=== PATIENT | male | born 1935 | race Asian ===

== ENCOUNTER → 2017-03-04 | Outpatient (CLI) | payer MEDICARE, OTHER ==
[~2017-03-04] VITALS: Ht 152.4 cm; Wt 54.0 kg
[~2017-03-04] MED LIST: ASPI81 PO; ATOR40TA28 PO; CARV12 PO; DIPH25CA85 PO; DUTA.5 PO; FERR-89 PO; FURO20 PO; ISOS30TA6 PO; LISI10TA7 PO; METF500T4 PO; NITR.4 SL; PRAS10TA6 PO; SLOWK8 PO; ZOLP5 PO
[2017-03-04 11:13] VITALS: BP 94/51
== END | disposition home or self-care (01) ==
LOC: SRCNTR 10:49
PROVIDERS: ATTEND Internal Medicine Clinical Cardiac Electrophysiology
DX: Z45.02 Encounter for adjustment and management of automatic implantable cardiac defibrillator (principal); E11.9 Type 2 diabetes mellitus without complications; E78.00 Pure hypercholesterolemia, unspecified; F17.210 Nicotine dependence, cigarettes, uncomplicated; I10 Essential (primary) hypertension; Z79.82 Long term (current) use of aspirin; Z88.0 Allergy status to penicillin
CPT/HCPCS: G0463

== ENCOUNTER → 2017-03-12 | Outpatient (CLI) | payer MEDICARE, OTHER ==
[2017-03-12 11:53] LABS: BASOPHILS % (AUTO) 0.8 % (0.0-2.0); EOSINOPHILS % (AUTO) 5.4 % (1.0-6.0); HEMATOCRIT 35.2 % (41-53); HEMOGLOBIN 12.1 g/dL (13.5-17.5); LYMPHOCYTES # (AUTO) 1.4 K/uL (1.0-4.8); LYMPHOCYTES % (AUTO) 20.9 % (22.0-44.0); MEAN CORPUSCULAR HEMOGLOBIN 34.6 pg (26.0-34.0); MEAN CORPUSCULAR HGB CONC 34.2 G/dL (31.0-37.0); MEAN CORPUSCULAR VOLUME 101 fL (80-100); MONOCYTES # (AUTO) 0.4 K/uL (0.1-1.0); MONOCYTES % (AUTO) 6.2 % (2.0-9.0); NEUTROPHILS # (AUTO) 4.4 K/uL (1.8-7.7); NEUTROPHILS % (AUTO) 66.7 % (40.0-70.0); PLATELET COUNT (AUTO) 144 K/uL (150-450); RED BLOOD CELL COUNT(AUTO) 3.48 MIL/uL (4.50-5.90); RED CELL DISTRIBUTION WIDTH 13.2 % (11.5-14.5); WHITE BLOOD COUNT (AUTO) 6.5 K/uL (4.5-11.0)
[2017-03-12 11:54] LABS: RBC MORPHOLOGY COMMENT ABNORMAL RBC MORPH
[2017-03-12 12:35] LABS: ALBUMIN 3.7 g/dL (3.4-5.0); BILIRUBIN,TOTAL 0.5 mg/dL (0.1-1.0); CALCIUM, TOTAL 9.2 mg/dL (8.8-10.5); CHOL/HDL RATIO 3.4 (4.2-7.3); CREATININE 1.46 mg/dL (0.60-1.30); MAGNESIUM 1.8 mg/dL (1.80-2.40); POTASSIUM 4.9 mmol/L (3.5-5.1); THYROID STIMULATING HORMONE 3.6 uIU/mL (0.36-3.74); TOTAL PROTEIN, SERUM 8.6 g/dL (6.4-8.2)
[2017-03-12 12:54] LABS: HEMOGLOBIN A1C 7.5 % (4.5-6.2)
== END | disposition home or self-care (01) ==
LOC: LABPV 10:09
PROVIDERS: ATTEND Internal Medicine Cardiovascular Disease
DX: I11.0 Hypertensive heart disease with heart failure (principal); I50.9 Heart failure, unspecified; E11.8 Type 2 diabetes mellitus with unspecified complications; E55.9 Vitamin D deficiency, unspecified
CPT/HCPCS: 82306; 83036; 83735; 84439; 84443

== ENCOUNTER → 2017-03-18 | Outpatient (CLI) | payer MEDICARE, OTHER ==
[~2017-03-18] VITALS: Ht 152.4 cm; Wt 53.5 kg
[2017-03-18 10:54] VITALS: BP 134/62
== END | disposition home or self-care (01) ==
LOC: SRCNTR 10:25
PROVIDERS: ATTEND Internal Medicine Clinical Cardiac Electrophysiology
DX: Z45.02 Encounter for adjustment and management of automatic implantable cardiac defibrillator (principal); I11.0 Hypertensive heart disease with heart failure; I50.22 Chronic systolic (congestive) heart failure; E11.9 Type 2 diabetes mellitus without complications; Z79.82 Long term (current) use of aspirin; Z88.0 Allergy status to penicillin; E78.5 Hyperlipidemia, unspecified
CPT/HCPCS: G0463

== ENCOUNTER 2017-03-20 15:17 | Inpatient (IN) | payer MEDICARE, OTHER ==
[~2017-03-20] VITALS: Ht 160 cm; Wt 43.6 kg
[2017-03-20 15:32] LABS: GLUCOSE,POINT OF CARE 168 MG/DL (70-110)
[2017-03-20] MEDS ORDERED: ASPIRIN 325 MG TABLET PO ONE (16:00)
[2017-03-20 16:40] LABS: BASOPHILS % (AUTO) 0.5 % (0.0-2.0); EOSINOPHILS % (AUTO) 2.8 % (1.0-6.0); HEMATOCRIT 34.8 % (41-53); HEMOGLOBIN 11.9 g/dL (13.5-17.5); LYMPHOCYTES # (AUTO) 1.3 K/uL (1.0-4.8); LYMPHOCYTES % (AUTO) 15.8 % (22.0-44.0); MEAN CORPUSCULAR HEMOGLOBIN 34.7 pg (26.0-34.0); MEAN CORPUSCULAR HGB CONC 34.2 G/dL (31.0-37.0); MEAN CORPUSCULAR VOLUME 101 fL (80-100); MONOCYTES # (AUTO) 0.6 K/uL (0.1-1.0); MONOCYTES % (AUTO) 7.3 % (2.0-9.0); NEUTROPHILS # (AUTO) 6.2 K/uL (1.8-7.7); NEUTROPHILS % (AUTO) 73.6 % (40.0-70.0); PLATELET COUNT (AUTO) 140 K/uL (150-450); RED BLOOD CELL COUNT(AUTO) 3.43 MIL/uL (4.50-5.90); RED CELL DISTRIBUTION WIDTH 13.8 % (11.5-14.5); WHITE BLOOD COUNT (AUTO) 8.4 K/uL (4.5-11.0)
[2017-03-20 16:52] LABS: INR 1.1 (0.9-1.1); PROTHROMBIN TIME 11.4 SEC (9.4-11.6)
[2017-03-20 16:52] LABS: APPEARANCE,URINE CLEAR (CLEAR); GLUCOSE, URINE (UA) NEGATIVE (NEGATIVE); KETONES,URINE NEGATIVE (NEGATIVE); LEUKOCYTE ESTERASE ,URINE NEGATIVE (NEGATIVE); OCCULT BLOOD,URINE NEGATIVE (NEGATIVE); PROTEIN,URINE NEGATIVE (NEGATIVE)
[2017-03-20 16:56] LABS: ADD UA MICROSCOPIC NO
[2017-03-20 17:02] LABS: ANION GAP 9 mmol/L (8-16); CALCIUM, TOTAL 9.3 mg/dL (8.8-10.5); CARBON DIOXIDE 27 mmol/L (22-29); CHLORIDE 102 mmol/L (98-107); CREATININE 1.84 mg/dL (0.60-1.30); GLOMERULAR FILTR. RATE CALC 35 mL/min (>60); POTASSIUM 4.5 mmol/L (3.5-5.1); SODIUM SERUM 138 mmol/L (136-145); UREA NITROGEN, BLOOD 21 mg/dL (7-18)
[2017-03-20 17:10] LABS: B-TYPE NATRIURETIC PEPTIDE 373 pg/mL (0-100)
[2017-03-20 17:27] LABS: ALANINE AMINOTRANSFERASE 21 U/L (12-78); ALBUMIN 3.8 g/dL (3.4-5.0); ASPARTATE AMINOTRANSFERASE 16 U/L (15-37); BILIRUBIN,TOTAL 0.5 mg/dL (0.1-1.0); CREATINE KINASE MB 0.8 ng/mL (0-5); CREATINE KINASE, TOTAL 118 U/L (39-308); TOTAL PROTEIN, SERUM 8.1 g/dL (6.4-8.2)
[2017-03-20 18:51] VITALS: BP 153/75
[2017-03-20 19:44] VITALS: BP 139/66
[2017-03-20] MEDS ORDERED: ONDANSETRON HCL 4 MG/2 ML VIAL IVP PRN (20:45)
[2017-03-20] MEDS ORDERED: 0.9% SODIUM CHLORIDE 10 ML SYRINGE IVP PRN (20:45)
[2017-03-20] MEDS ORDERED: NITROGLYCERIN 0.4 MG SUBLINGUAL TABLET #25 SL PRN ×2 (20:45→21:00)
[2017-03-20] MEDS ORDERED: MAGNESIUM HYDROXIDE SUSPENSION 30 ML UDCUP PO PRN (20:45)
[2017-03-20] MEDS ORDERED: ACETAMINOPHEN 325 MG TABLET PO PRN (20:45)
[2017-03-20] MEDS ORDERED: HYDROCODONE/ACETAMINOPHEN 5-325 MG TABLET PO PRN (20:45)
[2017-03-20] MEDS ORDERED: ALBUTEROL SULFATE 2.5 MG/0.5 ML NEB SOLUTION NEB PRN (20:45)
[2017-03-20] MEDS ORDERED: IPRATROPIUM BROMIDE 0.5 MG/2.5 ML NEB SOLUTION NEB PRN (20:45)
[2017-03-20] MEDS ORDERED: CLOPIDOGREL BISULFATE 75 MG TABLET PO SCH (20:45)
[2017-03-20] MEDS ORDERED: ZOLPIDEM TARTRATE 5 MG TABLET PO PRN (21:00)
[2017-03-20 21:03] LABS: RBC MORPHOLOGY COMMENT ABNORMAL RBC MORPH
[2017-03-20] MEDS: ATORVASTATIN CALCIUM 40 MG TABLET PO SCH (21:21)
[2017-03-20] MEDS: CARVEDILOL 12.5 MG TABLET PO SCH (21:21)
[2017-03-20] MEDS: DOCUSATE SODIUM 100 MG CAPSULE PO SCH (21:21)
[2017-03-20] MEDS ORDERED: PNEUMOCOCCAL VACCINE POLYVALENT 0.5 ML VIAL [PPSV23] IM ONE (23:00)
[2017-03-20] MEDS ORDERED: INFLUENZA VIRUS VACCINE QVS 2017-18 (3YR+)/PF 60 MCG/0.5 ML SYRINGE IM ONE (23:00)
[2017-03-21] VITALS (7 sets, daily range): BP systolic 129–149; BP diastolic 61–80
[2017-03-21 05:59] LABS: INR 1.1 (0.9-1.1); PROTHROMBIN TIME 11.7 SEC (9.4-11.6)
[2017-03-21 06:01] LABS: BASOPHILS % (AUTO) 0.8 % (0.0-2.0); EOSINOPHILS % (AUTO) 4.1 % (1.0-6.0); HEMATOCRIT 31.6 % (41-53); HEMOGLOBIN 10.9 g/dL (13.5-17.5); LYMPHOCYTES # (AUTO) 1.4 K/uL (1.0-4.8); LYMPHOCYTES % (AUTO) 21.1 % (22.0-44.0); MEAN CORPUSCULAR HEMOGLOBIN 35.1 pg (26.0-34.0); MEAN CORPUSCULAR HGB CONC 34.6 G/dL (31.0-37.0); MEAN CORPUSCULAR VOLUME 101 fL (80-100); MONOCYTES # (AUTO) 0.5 K/uL (0.1-1.0); MONOCYTES % (AUTO) 8.1 % (2.0-9.0); NEUTROPHILS # (AUTO) 4.2 K/uL (1.8-7.7); NEUTROPHILS % (AUTO) 65.9 % (40.0-70.0); PLATELET COUNT (AUTO) 123 K/uL (150-450); RED BLOOD CELL COUNT(AUTO) 3.12 MIL/uL (4.50-5.90); RED CELL DISTRIBUTION WIDTH 13.4 % (11.5-14.5); WHITE BLOOD COUNT (AUTO) 6.4 K/uL (4.5-11.0)
[2017-03-21 06:16] LABS: CALCIUM, TOTAL 8.9 mg/dL (8.8-10.5); CHOL/HDL RATIO 3.5 (4.2-7.3); CREATININE 1.68 mg/dL (0.60-1.30); MAGNESIUM 2.2 mg/dL (1.80-2.40); PHOSPHORUS 4.2 mg/dL (2.5-4.9); POTASSIUM 3.9 mmol/L (3.5-5.1)
[2017-03-21 07:01] LABS: RBC MORPHOLOGY COMMENT ABNORMAL RBC MORPH
[2017-03-21] MEDS: HEPARIN SODIUM,PORCINE 5,000 UNITS/ML VIAL SQ SCH ×3 (09:00→17:47)
[2017-03-21] MEDS ORDERED: ISOSORBIDE MONONITRATE 30 MG ER TABLET PO SCH (09:00)
[2017-03-21] MEDS: POTASSIUM CHLORIDE 8 MEQ ER TABLET PO SCH (09:01)
[2017-03-21] MEDS: FERROUS SULFATE 325 MG EC TABLET PO SCH (09:01)
[2017-03-21] MEDS: DOCUSATE SODIUM 100 MG CAPSULE PO SCH ×2 (09:01→21:15)
[2017-03-21] MEDS: CARVEDILOL 12.5 MG TABLET PO SCH (09:01)
[2017-03-21] MEDS: ASPIRIN 81 MG CHEWABLE TABLET PO SCH (09:01)
[2017-03-21] MEDS: FUROSEMIDE 20 MG TABLET PO SCH (09:02)
[2017-03-21] MEDS: PANTOPRAZOLE SODIUM 40 MG DR TABLET PO SCH (09:02)
[2017-03-21] MEDS: DUTASTERIDE 0.5 MG CAPSULE PO SCH (09:02)
[2017-03-21] MEDS: PRASUGREL HCL 10 MG TABLET PO SCH (09:02)
[2017-03-21] MEDS: RANOLAZINE 500 MG SR TABLET PO SCH ×2 (11:49→21:15)
[2017-03-21] MEDS: ATORVASTATIN CALCIUM 40 MG TABLET PO SCH (21:15)
[2017-03-21] MEDS: CARVEDILOL 25 MG TABLET PO SCH (21:15)
[2017-03-22] MEDS: HEPARIN SODIUM,PORCINE 5,000 UNITS/ML VIAL SQ SCH ×2 (00:45→08:15)
[2017-03-22 03:27] VITALS: BP 149/79
[2017-03-22 06:05] LABS: BASOPHILS % (AUTO) 0.6 % (0.0-2.0); EOSINOPHILS % (AUTO) 3.8 % (1.0-6.0); HEMATOCRIT 31.8 % (41-53); LYMPHOCYTES # (AUTO) 1.3 K/uL (1.0-4.8); LYMPHOCYTES % (AUTO) 19.8 % (22.0-44.0); MEAN CORPUSCULAR HEMOGLOBIN 34.9 pg (26.0-34.0); MEAN CORPUSCULAR HGB CONC 34.5 G/dL (31.0-37.0); MEAN CORPUSCULAR VOLUME 101 fL (80-100); MONOCYTES # (AUTO) 0.4 K/uL (0.1-1.0); MONOCYTES % (AUTO) 6.9 % (2.0-9.0); NEUTROPHILS # (AUTO) 4.5 K/uL (1.8-7.7); NEUTROPHILS % (AUTO) 68.9 % (40.0-70.0); PLATELET COUNT (AUTO) 117 K/uL (150-450); RED BLOOD CELL COUNT(AUTO) 3.14 MIL/uL (4.50-5.90); RED CELL DISTRIBUTION WIDTH 13.7 % (11.5-14.5); WHITE BLOOD COUNT (AUTO) 6.5 K/uL (4.5-11.0)
[2017-03-22 06:43] LABS: ALBUMIN 3.2 g/dL (3.4-5.0); BILIRUBIN,TOTAL 0.5 mg/dL (0.1-1.0); CALCIUM, TOTAL 8.8 mg/dL (8.8-10.5); CREATININE 1.46 mg/dL (0.60-1.30); MAGNESIUM 2.1 mg/dL (1.80-2.40); TOTAL PROTEIN, SERUM 7.1 g/dL (6.4-8.2)
[2017-03-22 07:14] VITALS: BP 143/68
[2017-03-22] MEDS: DOCUSATE SODIUM 100 MG CAPSULE PO SCH (08:14)
[2017-03-22] MEDS: CARVEDILOL 25 MG TABLET PO SCH (08:14)
[2017-03-22] MEDS: PRASUGREL HCL 10 MG TABLET PO SCH (08:15)
[2017-03-22] MEDS: FERROUS SULFATE 325 MG EC TABLET PO SCH (08:15)
[2017-03-22] MEDS: FUROSEMIDE 20 MG TABLET PO SCH (08:15)
[2017-03-22] MEDS: RANOLAZINE 500 MG SR TABLET PO SCH (08:15)
[2017-03-22] MEDS: DUTASTERIDE 0.5 MG CAPSULE PO SCH (08:15)
[2017-03-22] MEDS: POTASSIUM CHLORIDE 8 MEQ ER TABLET PO SCH (08:15)
[2017-03-22] MEDS: ASPIRIN 81 MG CHEWABLE TABLET PO SCH (08:15)
[2017-03-22] MEDS: PANTOPRAZOLE SODIUM 40 MG DR TABLET PO SCH (08:15)
[2017-03-22] MEDS ORDERED: ISOSORBIDE MONONITRATE 60 MG ER TABLET PO SCH (09:00)
[2017-03-22 09:12] LABS: RBC MORPHOLOGY COMMENT ABNORMAL RBC MORPH
[2017-03-22 11:38] VITALS: BP 103/56
[2017-03-22 12:22] VITALS: BP 100/85
[2017-03-22 22:38] LABS: GLUCOSE,POINT OF CARE 275 MG/DL (70-110)
== END 2017-03-22 14:35 | disposition home health service (06) | DRG 683 ==
LOC: EMS 15:19 → 5N 18:52
PROVIDERS: ADMIT Hospitalist; ATTEND Hospitalist
PROC: 3E0234Z Introduction of Serum, Toxoid and Vaccine into Muscle, Percutaneous Approach (ICD-10-PCS; principal; 2017-03-22)
DX: N17.9 Acute kidney failure, unspecified (principal); I25.110 Atherosclerotic heart disease of native coronary artery with unstable angina pectoris; I47.2 Ventricular tachycardia; E44.0 Moderate protein-calorie malnutrition; E11.22 Type 2 diabetes mellitus with diabetic chronic kidney disease; I50.20 Unspecified systolic (congestive) heart failure; I11.0 Hypertensive heart disease with heart failure; D50.9 Iron deficiency anemia, unspecified; F17.210 Nicotine dependence, cigarettes, uncomplicated; Z68.1 Body mass index [BMI] 19.9 or less, adult; I13.0 Hypertensive heart and chronic kidney disease with heart failure and stage 1 through stage 4 chronic kidney disease, or unspecified chronic kidney disease; D53.9 Nutritional anemia, unspecified; E78.00 Pure hypercholesterolemia, unspecified; E78.5 Hyperlipidemia, unspecified; I44.7 Left bundle-branch block, unspecified; J44.9 Chronic obstructive pulmonary disease, unspecified; N18.9 Chronic kidney disease, unspecified; N40.0 Benign prostatic hyperplasia without lower urinary tract symptoms; T38.3X5A Adverse effect of insulin and oral hypoglycemic [antidiabetic] drugs, initial encounter; Z85.028 Personal history of other malignant neoplasm of stomach; Z23 Encounter for immunization; Z88.0 Allergy status to penicillin; Z95.5 Presence of coronary angioplasty implant and graft; Z95.810 Presence of automatic (implantable) cardiac defibrillator; Z79.82 Long term (current) use of aspirin; Z79.899 Other long term (current) drug therapy; Z79.84 Long term (current) use of oral hypoglycemic drugs; Z79.02 Long term (current) use of antithrombotics/antiplatelets; I25.2 Old myocardial infarction; Y92.89 Other specified places as the place of occurrence of the external cause
CPT/HCPCS: 76770; 82570; 82962; 83735; 84100; 84300; 89050; 90471; 93005; 93306; 99285; J1644

== ENCOUNTER → 2017-04-01 | Outpatient (CLI) | payer MEDICARE, OTHER ==
[~2017-04-01] MED LIST changes: -DIPH25CA85 PO; -FERR-89 PO; -LISI10TA7 PO; -METF500T4 PO; -SLOWK8 PO; -ZOLP5 PO
[2017-04-01 11:29] LABS: CALCIUM, TOTAL 9.1 mg/dL (8.8-10.5); CREATININE 1.39 mg/dL (0.60-1.30); POTASSIUM 4.1 mmol/L (3.5-5.1)
== END | disposition home or self-care (01) ==
LOC: LABPV 09:58
PROVIDERS: ATTEND Internal Medicine Cardiovascular Disease
DX: I11.0 Hypertensive heart disease with heart failure (principal); I50.9 Heart failure, unspecified; E11.8 Type 2 diabetes mellitus with unspecified complications; E55.9 Vitamin D deficiency, unspecified

== ENCOUNTER → 2017-04-25 | Outpatient (CLI) | payer MEDICARE, OTHER ==
[2017-04-25 12:42] LABS: CALCIUM, TOTAL 9.4 mg/dL (8.8-10.5); CREATININE 1.41 mg/dL (0.60-1.30)
== END | disposition home or self-care (01) ==
LOC: LABPV 09:27
PROVIDERS: ATTEND Internal Medicine Cardiovascular Disease
DX: I11.0 Hypertensive heart disease with heart failure (principal); I50.9 Heart failure, unspecified; E11.65 Type 2 diabetes mellitus with hyperglycemia; E55.9 Vitamin D deficiency, unspecified

== ENCOUNTER → 2017-06-13 | Outpatient (CLI) | payer MEDICARE, OTHER ==
[2017-06-13 14:25] LABS: CREATININE 1.63 mg/dL (0.60-1.30)
[2017-06-13 14:38] LABS: POTASSIUM 3.8 mmol/L (3.5-5.1)
== END | disposition home or self-care (01) ==
LOC: LABPV 10:50
PROVIDERS: ATTEND Internal Medicine Cardiovascular Disease
DX: I11.0 Hypertensive heart disease with heart failure (principal); I50.9 Heart failure, unspecified; E11.8 Type 2 diabetes mellitus with unspecified complications

== ENCOUNTER 2017-08-10 15:40 | Inpatient (IN) | payer MEDICARE, OTHER ==
[~2017-08-10] VITALS: Ht 160 cm; Wt 54.4 kg
[2017-08-10] MEDS ORDERED: SITA25 PO (15:50)
[2017-08-10] MEDS ORDERED: OMEP10 PO (15:50)
[2017-08-10] MEDS ORDERED: SITA50 PO (16:05)
[2017-08-10] MEDS ORDERED: ATOR20TA86 PO (16:05)
[2017-08-10] MEDS ORDERED: NITROGLYCERIN 2% (1 GM=INCH) PACKET TP ONE ×2 (16:15→19:15)
[2017-08-10] MEDS ORDERED: ASPIRIN 325 MG TABLET PO ONE (16:15)
[2017-08-10 16:24] LABS: BASOPHILS % (AUTO) 0.8 % (0.0-2.0); EOSINOPHILS % (AUTO) 2.6 % (1.0-6.0); HEMATOCRIT 34.2 % (41-53); HEMOGLOBIN 11.8 g/dL (13.5-17.5); LYMPHOCYTES # (AUTO) 1.3 K/uL (1.0-4.8); LYMPHOCYTES % (AUTO) 18.4 % (22.0-44.0); MEAN CORPUSCULAR HEMOGLOBIN 34.2 pg (26.0-34.0); MEAN CORPUSCULAR HGB CONC 34.4 G/dL (31.0-37.0); MEAN CORPUSCULAR VOLUME 100 fL (80-100); MONOCYTES # (AUTO) 0.4 K/uL (0.1-1.0); MONOCYTES % (AUTO) 5.2 % (2.0-9.0); NEUTROPHILS # (AUTO) 5.1 K/uL (1.8-7.7); PLATELET COUNT (AUTO) 120 K/uL (150-450); RED BLOOD CELL COUNT(AUTO) 3.43 MIL/uL (4.50-5.90); RED CELL DISTRIBUTION WIDTH 13.4 % (11.5-14.5)
[2017-08-10 16:34] LABS: ANION GAP 9 mmol/L (8-16); CALCIUM, TOTAL 8.6 mg/dL (8.8-10.5); CARBON DIOXIDE 27 mmol/L (22-29); CHLORIDE 105 mmol/L (98-107); CREATININE 1.45 mg/dL (0.60-1.30); GLOMERULAR FILTR. RATE CALC 46 mL/min (>60); GLUCOSE,RANDOM 207 mg/dL (70-110); POTASSIUM 3.6 mmol/L (3.5-5.1); SODIUM SERUM 141 mmol/L (136-145); UREA NITROGEN, BLOOD 21 mg/dL (7-18)
[2017-08-10 16:37] LABS: PROTHROMBIN TIME 10.7 SEC (9.4-11.6)
[2017-08-10 16:59] LABS: ALANINE AMINOTRANSFERASE 29 U/L (12-78); ALBUMIN 3.3 g/dL (3.4-5.0); ALKALINE PHOSPHATASE 72 U/L (46-116); ASPARTATE AMINOTRANSFERASE 21 U/L (15-37); BILIRUBIN,TOTAL 0.5 mg/dL (0.1-1.0); CREATINE KINASE, TOTAL 248 U/L (39-308); TOTAL PROTEIN, SERUM 7.3 g/dL (6.4-8.2)
[2017-08-10 17:06] LABS: B-TYPE NATRIURETIC PEPTIDE 166 pg/mL (0-100)
[2017-08-10 17:29] LABS: CREATINE KINASE MB 1.8 ng/mL (0-5)
[2017-08-10] MEDS ORDERED: ACETAMINOPHEN 325 MG TABLET PO PRN ×2 (18:15→19:00)
[2017-08-10] MEDS ORDERED: 0.9% SODIUM CHLORIDE 10 ML SYRINGE IVP PRN ×2 (18:15→19:00)
[2017-08-10] MEDS ORDERED: ONDANSETRON HCL 4 MG/2 ML VIAL IVP PRN ×2 (18:15→19:00)
[2017-08-10] MEDS ORDERED: NITROGLYCERIN 0.4 MG SUBLINGUAL TABLET #25 SL PRN (18:45)
[2017-08-10] MEDS ORDERED: MAGNESIUM HYDROXIDE SUSPENSION 30 ML UDCUP PO PRN (19:00)
[2017-08-10] MEDS ORDERED: DEXTROSE 50%-WATER 25 GM/50 ML SYRINGE IVP PRN (19:00)
[2017-08-10] MEDS ORDERED: MORPHINE SULFATE 2 MG/ML SYRINGE IVP PRN (19:00)
[2017-08-10] MEDS ORDERED: BISACODYL 10 MG RECTAL RECTAL SUPPOSITORY PR PRN (19:00)
[2017-08-10] MEDS: DOCUSATE SODIUM 100 MG CAPSULE PO SCH (20:17)
[2017-08-10] MEDS: CARVEDILOL 12.5 MG TABLET PO SCH (20:17)
[2017-08-10 20:34] VITALS: BP 174/90
[2017-08-10 20:53] VITALS: BP 174/90
[2017-08-10] MEDS: ATORVASTATIN CALCIUM 20 MG TABLET PO SCH (21:29)
[2017-08-10 23:23] VITALS: BP 126/65
[2017-08-11] VITALS (8 sets, daily range): BP systolic 126–163; BP diastolic 62–78
[2017-08-11 06:56] LABS: BASOPHILS % (AUTO) 0.7 % (0.0-2.0); EOSINOPHILS % (AUTO) 3.5 % (1.0-6.0); HEMATOCRIT 33.6 % (41-53); HEMOGLOBIN 11.7 g/dL (13.5-17.5); LYMPHOCYTES # (AUTO) 1.3 K/uL (1.0-4.8); LYMPHOCYTES % (AUTO) 22.1 % (22.0-44.0); MEAN CORPUSCULAR HEMOGLOBIN 34.3 pg (26.0-34.0); MEAN CORPUSCULAR HGB CONC 34.8 G/dL (31.0-37.0); MEAN CORPUSCULAR VOLUME 99 fL (80-100); MONOCYTES # (AUTO) 0.4 K/uL (0.1-1.0); MONOCYTES % (AUTO) 6.4 % (2.0-9.0); NEUTROPHILS # (AUTO) 4.1 K/uL (1.8-7.7); NEUTROPHILS % (AUTO) 67.3 % (40.0-70.0); PLATELET COUNT (AUTO) 120 K/uL (150-450); RED BLOOD CELL COUNT(AUTO) 3.41 MIL/uL (4.50-5.90); RED CELL DISTRIBUTION WIDTH 13.4 % (11.5-14.5)
[2017-08-11 07:15] LABS: ALBUMIN 3.3 g/dL (3.4-5.0); BILIRUBIN,TOTAL 0.5 mg/dL (0.1-1.0); CALCIUM, TOTAL 8.9 mg/dL (8.8-10.5); CHOL/HDL RATIO 3.9 (4.2-7.3); CREATININE 1.38 mg/dL (0.60-1.30); MAGNESIUM 2.2 mg/dL (1.80-2.40); PHOSPHORUS 3.4 mg/dL (2.5-4.9); POTASSIUM 3.3 mmol/L (3.5-5.1)
[2017-08-11] MEDS: ASPIRIN 81 MG CHEWABLE TABLET PO SCH (08:21)
[2017-08-11] MEDS: DOCUSATE SODIUM 100 MG CAPSULE PO SCH ×2 (08:21→20:20)
[2017-08-11] MEDS: PANTOPRAZOLE SODIUM 40 MG DR TABLET PO SCH (08:22)
[2017-08-11] MEDS: ISOSORBIDE MONONITRATE 30 MG ER TABLET PO SCH (08:22)
[2017-08-11] MEDS: CARVEDILOL 12.5 MG TABLET PO SCH ×2 (08:29→20:20)
[2017-08-11] MEDS ORDERED: PRASUGREL HCL 10 MG TABLET PO SCH (09:00)
[2017-08-11] MEDS: TICAGRELOR 90 MG TABLET PO SCH ×2 (09:32→20:20)
[2017-08-11] MEDS ORDERED: POTASSIUM CHLORIDE 20 MEQ ER TABLET PO ONE (09:45)
[2017-08-11] MEDS ORDERED: SESTAMIBI TC99M/UD ISOTOPE 1 EA INJ INJ ONE ×2 (10:30→12:45)
[2017-08-11] MEDS ORDERED: REGADENOSON 0.4 MG/5 ML PF SYRINGE IVP ONE (12:46)
[2017-08-11] MEDS ORDERED: AMINOPHYLLINE 25 MG/ML 10 ML VIAL IVP ONE ×2 (12:50→12:55)
[2017-08-11 14:58] LABS: GLUCOMETER DEV NAME(LOC) 5N 2S; GLUCOSE,POINT OF CARE 120 MG/DL (70-110)
[2017-08-11 14:58] LABS: GLUCOMETER DEV NAME(LOC) 5N 2S; GLUCOSE,POINT OF CARE 87 MG/DL (70-110)
[2017-08-11 14:59] LABS: GLUCOMETER DEV NAME(LOC) 5N 2S; GLUCOSE,POINT OF CARE 119 MG/DL (70-110)
[2017-08-11] MEDS: INSULIN ASPART 100 UNITS/ML SQ PRN (18:43)
[2017-08-11] MEDS: ATORVASTATIN CALCIUM 20 MG TABLET PO SCH (20:20)
[2017-08-12 00:24] VITALS: BP 138/68
[2017-08-12 05:24] VITALS: BP 123/73
[2017-08-12 05:46] LABS: BASOPHILS % (AUTO) 0.7 % (0.0-2.0); EOSINOPHILS % (AUTO) 2.6 % (1.0-6.0); HEMATOCRIT 34.2 % (41-53); HEMOGLOBIN 11.9 g/dL (13.5-17.5); LYMPHOCYTES # (AUTO) 1.4 K/uL (1.0-4.8); LYMPHOCYTES % (AUTO) 20.5 % (22.0-44.0); MEAN CORPUSCULAR HEMOGLOBIN 34.2 pg (26.0-34.0); MEAN CORPUSCULAR HGB CONC 34.8 G/dL (31.0-37.0); MEAN CORPUSCULAR VOLUME 98 fL (80-100); MONOCYTES # (AUTO) 0.4 K/uL (0.1-1.0); MONOCYTES % (AUTO) 6.2 % (2.0-9.0); NEUTROPHILS # (AUTO) 4.8 K/uL (1.8-7.7); PLATELET COUNT (AUTO) 121 K/uL (150-450); RED BLOOD CELL COUNT(AUTO) 3.48 MIL/uL (4.50-5.90); RED CELL DISTRIBUTION WIDTH 13.3 % (11.5-14.5)
[2017-08-12] MEDS: INSULIN ASPART 100 UNITS/ML SQ PRN (05:51)
[2017-08-12 06:13] LABS: ALBUMIN 3.2 g/dL (3.4-5.0); BILIRUBIN,TOTAL 0.5 mg/dL (0.1-1.0); CALCIUM, TOTAL 8.9 mg/dL (8.8-10.5); CREATININE 1.31 mg/dL (0.60-1.30); MAGNESIUM 2.1 mg/dL (1.80-2.40); POTASSIUM 3.7 mmol/L (3.5-5.1); TOTAL PROTEIN, SERUM 6.8 g/dL (6.4-8.2)
[2017-08-12 07:19] VITALS: BP 125/74
[2017-08-12] MEDS: DOCUSATE SODIUM 100 MG CAPSULE PO SCH (08:15)
[2017-08-12] MEDS: TICAGRELOR 90 MG TABLET PO SCH (08:15)
[2017-08-12] MEDS: ASPIRIN 81 MG CHEWABLE TABLET PO SCH (08:15)
[2017-08-12] MEDS: PANTOPRAZOLE SODIUM 40 MG DR TABLET PO SCH (08:16)
[2017-08-12] MEDS: ISOSORBIDE MONONITRATE 30 MG ER TABLET PO SCH (08:16)
[2017-08-12] MEDS: CARVEDILOL 12.5 MG TABLET PO SCH (08:18)
[2017-08-12 11:02] VITALS: BP 119/68
[2017-08-12 15:50] VITALS: BP 144/77
[2017-08-12] MEDS ORDERED: REGADENOSON 0.4 MG/5 ML PF SYRINGE IVP ONE (18:09)
[2017-08-12] MEDS ORDERED: AMINOPHYLLINE 25 MG/ML 10 ML VIAL IVP ONE (18:09)
[2017-08-12] MEDS ORDERED: ATORVASTATIN CALCIUM 20 MG TABLET PO SCH (21:00)
[2017-08-14 15:08] LABS: GLUCOMETER DEV NAME(LOC) 5N 2S; GLUCOSE,POINT OF CARE 146 MG/DL (70-110)
[2017-08-14 15:08] LABS: GLUCOMETER DEV NAME(LOC) 5S 2N; GLUCOSE,POINT OF CARE 163 MG/DL (70-110)
[2017-08-14 15:08] LABS: GLUCOMETER DEV NAME(LOC) 5N 2S; GLUCOSE,POINT OF CARE 123 MG/DL (70-110)
[2017-08-14 15:09] LABS: GLUCOMETER DEV NAME(LOC) 5S 2N; GLUCOSE,POINT OF CARE 103 MG/DL (70-110)
== END 2017-08-12 18:10 | disposition home or self-care (01) | DRG 683 ==
LOC: EMS 15:41 → 5N 18:33
PROVIDERS: ADMIT Internal Medicine; ATTEND Internal Medicine
DX: N17.9 Acute kidney failure, unspecified (principal); I25.110 Atherosclerotic heart disease of native coronary artery with unstable angina pectoris; I49.5 Sick sinus syndrome; I11.0 Hypertensive heart disease with heart failure; I50.22 Chronic systolic (congestive) heart failure; D63.8 Anemia in other chronic diseases classified elsewhere; E11.9 Type 2 diabetes mellitus without complications; J44.9 Chronic obstructive pulmonary disease, unspecified; E78.00 Pure hypercholesterolemia, unspecified; I44.7 Left bundle-branch block, unspecified; M19.90 Unspecified osteoarthritis, unspecified site; E78.5 Hyperlipidemia, unspecified; N40.0 Benign prostatic hyperplasia without lower urinary tract symptoms; Z95.0 Presence of cardiac pacemaker; Z85.028 Personal history of other malignant neoplasm of stomach; Z88.0 Allergy status to penicillin; Z79.82 Long term (current) use of aspirin
CPT/HCPCS: 78452; 82962; 83735; 84100; 93005; 93017; 93306; A9500; J0280; J2785

== ENCOUNTER 2017-09-23 08:54 | Day surgery (SDC) | payer MEDICARE, OTHER ==
[~2017-09-23] VITALS: Ht 160 cm; Wt 55.9 kg
[~2017-09-23 08:54] MED LIST changes: +ATOR20TA86 PO; -ATOR40TA28 PO; -DUTA.5 PO; +FOLI1 PO; +OMEP10 PO; +PIOG15TA6 PO; +RANI150T7 PO; +SACU1TAB PO; +SITA50 PO; +VITAD50000 PO
[2017-09-23] MEDS ORDERED: 0.9% SODIUM CHLORIDE 10 ML SYRINGE IVP PRN (09:15)
[2017-09-23 09:46] LABS: CALCIUM, TOTAL 8.9 mg/dL (8.8-10.5); CREATININE 1.72 mg/dL (0.60-1.30); POTASSIUM 3.6 mmol/L (3.5-5.1)
[2017-09-23] MEDS ORDERED: NITROGLYCERIN 400 MCG/SUBLINGUAL SPRAY 4.9 GM BOTTLE SL ONE ×2 (10:11→10:45)
[2017-09-23] MEDS ORDERED: METOPROLOL TARTRATE 5 MG/5 ML VIAL ONE (10:11)
[2017-09-23] MEDS ORDERED: SODIUM CHLORIDE 0.9% 100 ML ONE (10:23)
[2017-09-23] MEDS ORDERED: IOVERSOL 350 MG/ML 150 ML VIAL ONE (10:23)
[2017-09-23 10:25] VITALS: BP 139/78
[2017-09-23 10:30] VITALS: BP 125/66
[2017-09-23 10:50] VITALS: BP 150/112
== END 2017-09-23 11:30 | disposition home or self-care (01) ==
LOC: SURGERY 08:54 → EDSTATUS 11:00 → SURGERY 11:30
PROVIDERS: ATTEND Internal Medicine Cardiovascular Disease
DX: I25.118 Atherosclerotic heart disease of native coronary artery with other forms of angina pectoris (principal); I42.5 Other restrictive cardiomyopathy; I11.0 Hypertensive heart disease with heart failure; I50.9 Heart failure, unspecified; I44.7 Left bundle-branch block, unspecified; F17.210 Nicotine dependence, cigarettes, uncomplicated; J44.9 Chronic obstructive pulmonary disease, unspecified; E78.00 Pure hypercholesterolemia, unspecified; E11.9 Type 2 diabetes mellitus without complications; M17.0 Bilateral primary osteoarthritis of knee; F10.21 Alcohol dependence, in remission; N40.0 Benign prostatic hyperplasia without lower urinary tract symptoms; Z95.0 Presence of cardiac pacemaker; Z95.5 Presence of coronary angioplasty implant and graft; Z79.82 Long term (current) use of aspirin; Z88.0 Allergy status to penicillin; Z79.899 Other long term (current) drug therapy; Z98.890 Other specified postprocedural states
CPT/HCPCS: 36415; 75574; 80048; 93005; J7050; Q9967; J3490

== ENCOUNTER 2018-03-15 20:58 | Inpatient (IN) | payer MEDICARE, OTHER ==
[~2018-03-15] VITALS: Ht 160 cm; Wt 53.5 kg
[2018-03-15] MEDS ORDERED: SPIR25TA6 PO (21:05)
[2018-03-15] MEDS ORDERED: RANO500T3 PO (21:05)
[2018-03-15 21:14] LABS: GLUCOSE,POINT OF CARE 159 MG/DL (70-110)
[2018-03-15] MEDS ORDERED: SODIUM CHLORIDE 0.9% 500 ML IV ONE (21:15)
[2018-03-15 21:48] LABS: BASOPHILS % (AUTO) 0.6 % (0.0-2.0); HEMATOCRIT 28.2 % (41-53); HEMOGLOBIN 9.9 g/dL (13.5-17.5); LYMPHOCYTES # (AUTO) 0.9 K/uL (1.0-4.8); LYMPHOCYTES % (AUTO) 14.2 % (22.0-44.0); MEAN CORPUSCULAR HEMOGLOBIN 36.2 pg (26.0-34.0); MEAN CORPUSCULAR VOLUME 103 fL (80-100); MONOCYTES # (AUTO) 0.5 K/uL (0.1-1.0); MONOCYTES % (AUTO) 7.6 % (2.0-9.0); NEUTROPHILS # (AUTO) 4.8 K/uL (1.8-7.7); NEUTROPHILS % (AUTO) 74.6 % (40.0-70.0); PLATELET COUNT (AUTO) 101 K/uL (150-450); RED BLOOD CELL COUNT(AUTO) 2.73 MIL/uL (4.50-5.90); RED CELL DISTRIBUTION WIDTH 14.3 % (11.5-14.5)
[2018-03-15 22:07] LABS: ALBUMIN 3.1 g/dL (3.4-5.0); CALCIUM, TOTAL 8.4 mg/dL (8.8-10.5); CREATININE 2.52 mg/dL (0.60-1.30); POTASSIUM 5.2 mmol/L (3.5-5.1)
[2018-03-15 22:21] LABS: BILIRUBIN,TOTAL 0.4 mg/dL (0.1-1.0)
[2018-03-15] MEDS ORDERED: SODIUM POLYSTYRENE SULFONATE 15 GM/60 ML SUSPENSION BOTTLE PO ONE (22:45)
[2018-03-15] MEDS ORDERED: ASPIRIN 325 MG TABLET PO ONE (22:45)
[2018-03-15] MEDS ORDERED: 0.9% SODIUM CHLORIDE 10 ML SYRINGE IVP PRN (23:00)
[2018-03-15] MEDS ORDERED: ACETAMINOPHEN 325 MG TABLET PO PRN (23:00)
[2018-03-15] MEDS ORDERED: ONDANSETRON HCL 4 MG/2 ML VIAL IVP PRN (23:00)
[2018-03-15 23:58] VITALS: BP 102/53
[2018-03-16] MEDS ORDERED: 0.9% SODIUM CHLORIDE 10 ML SYRINGE IVP PRN (00:30)
[2018-03-16] MEDS ORDERED: ONDANSETRON HCL 4 MG/2 ML VIAL IVP PRN (00:30)
[2018-03-16] MEDS ORDERED: NITROGLYCERIN 0.4 MG SUBLINGUAL TABLET #25 SL PRN (00:30)
[2018-03-16] MEDS ORDERED: GLUCAGON,HUMAN RECOMBINANT 1 MG VIAL IM PRN (03:45)
[2018-03-16] MEDS ORDERED: INSULIN LISPRO 100 UNITS/ML SQ PRN (03:45)
[2018-03-16] MEDS ORDERED: DEXTROSE 50%-WATER 25 GM/50 ML SYG IVP PRN (05:00)
[2018-03-16 05:09] VITALS: BP 109/53
[2018-03-16 05:58] LABS: BASOPHILS % (AUTO) 0.6 % (0.0-2.0); EOSINOPHILS % (AUTO) 3.7 % (1.0-6.0); HEMATOCRIT 26.5 % (41-53); HEMOGLOBIN 9.5 g/dL (13.5-17.5); LYMPHOCYTES # (AUTO) 0.9 K/uL (1.0-4.8); LYMPHOCYTES % (AUTO) 16.3 % (22.0-44.0); MEAN CORPUSCULAR HEMOGLOBIN 36.5 pg (26.0-34.0); MEAN CORPUSCULAR VOLUME 102 fL (80-100); MONOCYTES # (AUTO) 0.4 K/uL (0.1-1.0); MONOCYTES % (AUTO) 7.5 % (2.0-9.0); NEUTROPHILS % (AUTO) 71.9 % (40.0-70.0); PLATELET COUNT (AUTO) 101 K/uL (150-450); RED BLOOD CELL COUNT(AUTO) 2.61 MIL/uL (4.50-5.90); RED CELL DISTRIBUTION WIDTH 14.2 % (11.5-14.5)
[2018-03-16 06:27] LABS: ALBUMIN 2.9 g/dL (3.4-5.0); BILIRUBIN,TOTAL 0.5 mg/dL (0.1-1.0); CALCIUM, TOTAL 8.1 mg/dL (8.8-10.5); CREATININE 1.96 mg/dL (0.60-1.30); POTASSIUM 4.2 mmol/L (3.5-5.1); TOTAL PROTEIN, SERUM 6.3 g/dL (6.4-8.2)
[2018-03-16 07:17] LABS: APPEARANCE,URINE CLEAR (CLEAR); BILIRUBIN,URINE NEGATIVE (NEGATIVE); GLUCOSE, URINE (UA) NEGATIVE (NEGATIVE); KETONES,URINE NEGATIVE (NEGATIVE); LEUKOCYTE ESTERASE ,URINE NEGATIVE (NEGATIVE); NITRATE,URINE NEGATIVE (NEGATIVE); OCCULT BLOOD,URINE NEGATIVE (NEGATIVE); PROTEIN,URINE NEGATIVE (NEGATIVE); UROBILINOGEN,URINE 0.2 mg/dL (<=1.0)
[2018-03-16 07:30] LABS: BACTERIA,URINE None Seen /HPF (None Seen); RBC,URINE None Seen /HPF (0-2); SQUAMOUS EPITHELIAL CELL,UR Few /LPF (None Seen)
[2018-03-16 07:35] VITALS: BP 101/101
[2018-03-16] MEDS ORDERED: CHOLECALCIFEROL (VIT D3) 50,000 UNITS CAPSULE PO SCH (09:00)
[2018-03-16] MEDS ORDERED: SPIRONOLACTONE 25 MG TABLET PO SCH (09:00)
[2018-03-16] MEDS ORDERED: FUROSEMIDE 20 MG TABLET PO SCH (09:00)
[2018-03-16] MEDS: PANTOPRAZOLE SODIUM 40 MG/VIAL IVP SCH (09:17)
[2018-03-16] MEDS: FOLIC ACID 1 MG TABLET PO SCH (09:18)
[2018-03-16] MEDS: ISOSORBIDE MONONITRATE 30 MG ER TABLET PO SCH (09:18)
[2018-03-16] MEDS: ASPIRIN 81 MG CHEWABLE TABLET PO SCH (09:18)
[2018-03-16] MEDS: SACUBITRIL/VALSARTAN 24-26 MG TABLET PO SCH ×2 (09:21→20:15)
[2018-03-16] MEDS: PRASUGREL HCL 10 MG TABLET PO SCH (09:21)
[2018-03-16] MEDS: RANOLAZINE 500 MG SR TABLET PO SCH ×2 (09:21→20:15)
[2018-03-16] MEDS: PIOGLITAZONE HCL 15 MG TABLET PO SCH (09:22)
[2018-03-16] MEDS: SitaGLIPtin PHOSPHATE 50 MG TABLET PO SCH (09:22)
[2018-03-16 11:04] VITALS: BP 123/59
[2018-03-16] MEDS: CARVEDILOL 12.5 MG TABLET PO SCH ×3 (14:43→20:16)
[2018-03-16] MEDS ORDERED: SODIUM CHLORIDE 0.9% 500 ML IV ONE (14:45)
[2018-03-16 19:25] VITALS: BP 117/56
[2018-03-16] MEDS: ATORVASTATIN CALCIUM 20 MG TABLET PO SCH (20:15)
[2018-03-16] MEDS: MEGESTROL ACETATE 400 MG/10 ML SUSPENSION UDCUP PO SCH (20:17)
[2018-03-16 20:20] LABS: GLUCOMETER DEV NAME(LOC) 5S 1M; GLUCOSE,POINT OF CARE 141 MG/DL (70-110)
[2018-03-16 20:20] LABS: GLUCOMETER DEV NAME(LOC) 5S 1M; GLUCOSE,POINT OF CARE 156 MG/DL (70-110)
[2018-03-16 20:24] LABS: GLUCOMETER DEV NAME(LOC) 5S 2Q; GLUCOSE,POINT OF CARE 148 MG/DL (70-110)
[2018-03-16 23:36] VITALS: BP 103/55
[2018-03-17 04:32] VITALS: BP 107/51
[2018-03-17 05:16] LABS: BASOPHILS % (AUTO) 0.7 % (0.0-2.0); EOSINOPHILS % (AUTO) 3.2 % (1.0-6.0); HEMATOCRIT 28.2 % (41-53); LYMPHOCYTES # (AUTO) 0.9 K/uL (1.0-4.8); LYMPHOCYTES % (AUTO) 15.9 % (22.0-44.0); MEAN CORPUSCULAR HEMOGLOBIN 36.8 pg (26.0-34.0); MEAN CORPUSCULAR HGB CONC 35.6 G/dL (31.0-37.0); MEAN CORPUSCULAR VOLUME 104 fL (80-100); MONOCYTES # (AUTO) 0.4 K/uL (0.1-1.0); MONOCYTES % (AUTO) 6.9 % (2.0-9.0); NEUTROPHILS # (AUTO) 4.2 K/uL (1.8-7.7); NEUTROPHILS % (AUTO) 73.3 % (40.0-70.0); PLATELET COUNT (AUTO) 109 K/uL (150-450); RED BLOOD CELL COUNT(AUTO) 2.73 MIL/uL (4.50-5.90); RED CELL DISTRIBUTION WIDTH 14.2 % (11.5-14.5)
[2018-03-17 05:48] LABS: CALCIUM, TOTAL 8.3 mg/dL (8.8-10.5); CREATININE 1.71 mg/dL (0.60-1.30); MAGNESIUM 1.8 mg/dL (1.80-2.40); POTASSIUM 4.4 mmol/L (3.5-5.1)
[2018-03-17 07:56] VITALS: BP 124/58
[2018-03-17] MEDS: PANTOPRAZOLE SODIUM 40 MG/VIAL IVP SCH (08:06)
[2018-03-17] MEDS: PRASUGREL HCL 10 MG TABLET PO SCH (08:07)
[2018-03-17] MEDS: ASPIRIN 81 MG CHEWABLE TABLET PO SCH (08:07)
[2018-03-17] MEDS: FOLIC ACID 1 MG TABLET PO SCH (08:07)
[2018-03-17] MEDS: PIOGLITAZONE HCL 15 MG TABLET PO SCH (08:07)
[2018-03-17] MEDS: CARVEDILOL 12.5 MG TABLET PO SCH (08:07)
[2018-03-17] MEDS: RANOLAZINE 500 MG SR TABLET PO SCH ×2 (08:07→20:22)
[2018-03-17] MEDS: ISOSORBIDE MONONITRATE 30 MG ER TABLET PO SCH (08:07)
[2018-03-17] MEDS: SACUBITRIL/VALSARTAN 24-26 MG TABLET PO SCH ×2 (08:08→20:22)
[2018-03-17] MEDS: MEGESTROL ACETATE 400 MG/10 ML SUSPENSION UDCUP PO SCH ×2 (08:08→20:22)
[2018-03-17] MEDS: SitaGLIPtin PHOSPHATE 50 MG TABLET PO SCH (08:08)
[2018-03-17 11:20] VITALS: BP 96/49
[2018-03-17] MEDS ORDERED: SODIUM CHLORIDE 0.9% 500 ML IV ONE (11:30)
[2018-03-17 11:54] LABS: GLUCOMETER DEV NAME(LOC) 5N 1P; GLUCOSE,POINT OF CARE 154 MG/DL (70-110)
[2018-03-17] MEDS: INSULIN LISPRO 100 UNITS/ML SQ PRN ×2 (12:04→20:26)
[2018-03-17 16:05] VITALS: BP 128/55
[2018-03-17 19:53] VITALS: BP 133/52
[2018-03-17 19:59] LABS: GLUCOMETER DEV NAME(LOC) 5S 2Q; GLUCOSE,POINT OF CARE 154 MG/DL (70-110)
[2018-03-17] MEDS: ATORVASTATIN CALCIUM 20 MG TABLET PO SCH (20:22)
[2018-03-17] MEDS: CARVEDILOL 6.25 MG TABLET PO SCH (20:22)
[2018-03-17 23:56] VITALS: BP 116/58
[2018-03-18 03:58] VITALS: BP 144/54
[2018-03-18 06:00] LABS: GLUCOMETER DEV NAME(LOC) 5N 2S; GLUCOSE,POINT OF CARE 142 MG/DL (70-110)
[2018-03-18 06:00] LABS: GLUCOMETER DEV NAME(LOC) 5S 1M; GLUCOSE,POINT OF CARE 222 MG/DL (70-110)
[2018-03-18] MEDS: INSULIN LISPRO 100 UNITS/ML SQ PRN ×2 (06:46→11:59)
[2018-03-18 07:03] LABS: BASOPHILS % (AUTO) 0.6 % (0.0-2.0); EOSINOPHILS % (AUTO) 3.2 % (1.0-6.0); HEMATOCRIT 31.6 % (41-53); HEMOGLOBIN 11.3 g/dL (13.5-17.5); LYMPHOCYTES % (AUTO) 15.8 % (22.0-44.0); MEAN CORPUSCULAR HEMOGLOBIN 36.5 pg (26.0-34.0); MEAN CORPUSCULAR HGB CONC 35.7 G/dL (31.0-37.0); MEAN CORPUSCULAR VOLUME 102 fL (80-100); MONOCYTES # (AUTO) 0.5 K/uL (0.1-1.0); MONOCYTES % (AUTO) 7.9 % (2.0-9.0); NEUTROPHILS # (AUTO) 4.6 K/uL (1.8-7.7); NEUTROPHILS % (AUTO) 72.5 % (40.0-70.0); PLATELET COUNT (AUTO) 124 K/uL (150-450); RED BLOOD CELL COUNT(AUTO) 3.09 MIL/uL (4.50-5.90); RED CELL DISTRIBUTION WIDTH 14.7 % (11.5-14.5)
[2018-03-18 07:14] LABS: CALCIUM, TOTAL 8.5 mg/dL (8.8-10.5); CREATININE 1.38 mg/dL (0.60-1.30); POTASSIUM 4.3 mmol/L (3.5-5.1)
[2018-03-18 07:30] VITALS: BP 148/86
[2018-03-18] MEDS: RANOLAZINE 500 MG SR TABLET PO SCH (09:07)
[2018-03-18] MEDS: ASPIRIN 81 MG CHEWABLE TABLET PO SCH (09:07)
[2018-03-18] MEDS: SitaGLIPtin PHOSPHATE 50 MG TABLET PO SCH (09:08)
[2018-03-18] MEDS: PRASUGREL HCL 10 MG TABLET PO SCH (09:08)
[2018-03-18] MEDS: ISOSORBIDE MONONITRATE 30 MG ER TABLET PO SCH (09:09)
[2018-03-18] MEDS: FOLIC ACID 1 MG TABLET PO SCH (09:09)
[2018-03-18] MEDS: CARVEDILOL 6.25 MG TABLET PO SCH (09:09)
[2018-03-18] MEDS: PIOGLITAZONE HCL 15 MG TABLET PO SCH (09:09)
[2018-03-18] MEDS: SACUBITRIL/VALSARTAN 24-26 MG TABLET PO SCH (09:10)
[2018-03-18] MEDS: PANTOPRAZOLE SODIUM 40 MG/VIAL IVP SCH (09:12)
[2018-03-18] MEDS: MEGESTROL ACETATE 400 MG/10 ML SUSPENSION UDCUP PO SCH (09:13)
[2018-03-18 11:05] VITALS: BP 111/58
[2018-03-18 15:16] VITALS: BP 104/53
[2018-03-18 16:49] LABS: GLUCOMETER DEV NAME(LOC) 5S 2Q; GLUCOSE,POINT OF CARE 145 MG/DL (70-110)
[2018-03-18 16:49] LABS: GLUCOMETER DEV NAME(LOC) 5N 1P; GLUCOSE,POINT OF CARE 218 MG/DL (70-110)
[2018-03-18 16:50] LABS: GLUCOMETER DEV NAME(LOC) 5S 2Q; GLUCOSE,POINT OF CARE 156 MG/DL (70-110)
== END 2018-03-18 17:05 | disposition home health service (06) | DRG 682 ==
LOC: EMS 20:59 → 5S 22:51
PROVIDERS: ADMIT Internal Medicine; ATTEND Internal Medicine
DX: N17.0 Acute kidney failure with tubular necrosis (principal); E43 Unspecified severe protein-calorie malnutrition; I50.22 Chronic systolic (congestive) heart failure; A08.4 Viral intestinal infection, unspecified; I11.0 Hypertensive heart disease with heart failure; E78.00 Pure hypercholesterolemia, unspecified; E11.43 Type 2 diabetes mellitus with diabetic autonomic (poly)neuropathy; I25.10 Atherosclerotic heart disease of native coronary artery without angina pectoris; I49.9 Cardiac arrhythmia, unspecified; K31.84 Gastroparesis; E86.0 Dehydration; D64.9 Anemia, unspecified; W19.XXXA Unspecified fall, initial encounter; E87.5 Hyperkalemia; Z79.82 Long term (current) use of aspirin; Z79.899 Other long term (current) drug therapy; Z98.61 Coronary angioplasty status; Z88.0 Allergy status to penicillin; Z95.810 Presence of automatic (implantable) cardiac defibrillator; Y93.89 Activity, other specified; Y92.89 Other specified places as the place of occurrence of the external cause; Y99.8 Other external cause status; Z68.20 Body mass index [BMI] 20.0-20.9, adult
CPT/HCPCS: 70450; 83735; 93005; 96361; 96374; 99291; C9113; J7030; J7040

== ENCOUNTER 2018-03-20 13:18 | Inpatient (IN) | payer MEDICARE, OTHER ==
[~2018-03-20] VITALS: Ht 165.1 cm; Wt 55.6 kg
[~2018-03-20 13:18] MED LIST changes: -FOLI1 PO; -FURO20 PO; +RANO500T3 PO
[2018-03-20] MEDS ORDERED: SODIUM CHLORIDE 0.9% 500 ML IV ONE ×2 (13:30→14:30)
[2018-03-20] MEDS ORDERED: SODIUM CHLORIDE 0.9% 1,000 ML IV ONE (14:30)
[2018-03-20 15:20] LABS: BASOPHILS % (AUTO) 0.8 % (0.0-2.0); EOSINOPHILS % (AUTO) 3.5 % (1.0-6.0); HEMATOCRIT 28.2 % (41-53); HEMOGLOBIN 9.8 g/dL (13.5-17.5); LYMPHOCYTES # (AUTO) 0.9 K/uL (1.0-4.8); LYMPHOCYTES % (AUTO) 13.3 % (22.0-44.0); MEAN CORPUSCULAR HEMOGLOBIN 36.5 pg (26.0-34.0); MEAN CORPUSCULAR HGB CONC 34.9 G/dL (31.0-37.0); MEAN CORPUSCULAR VOLUME 104 fL (80-100); MONOCYTES # (AUTO) 0.5 K/uL (0.1-1.0); MONOCYTES % (AUTO) 8.5 % (2.0-9.0); NEUTROPHILS # (AUTO) 4.7 K/uL (1.8-7.7); NEUTROPHILS % (AUTO) 73.9 % (40.0-70.0); PLATELET COUNT (AUTO) 118 K/uL (150-450); RED CELL DISTRIBUTION WIDTH 14.6 % (11.5-14.5)
[2018-03-20 15:33] LABS: CALCIUM, TOTAL 8.1 mg/dL (8.8-10.5); CREATININE 2.18 mg/dL (0.60-1.30); POTASSIUM 4.4 mmol/L (3.5-5.1)
[2018-03-20 15:34] LABS: INR 1.1 (0.9-1.1)
[2018-03-20 15:41] LABS: LACTIC ACID 1.3 mmol/L (0.4-2.0)
[2018-03-20 15:58] LABS: ALBUMIN 2.8 g/dL (3.4-5.0); BILIRUBIN,TOTAL 0.4 mg/dL (0.1-1.0); TOTAL PROTEIN, SERUM 6.4 g/dL (6.4-8.2)
[2018-03-20 17:33] LABS: BILIRUBIN,URINE NEGATIVE (NEGATIVE); GLUCOSE, URINE (UA) NEGATIVE (NEGATIVE); KETONES,URINE NEGATIVE (NEGATIVE); LEUKOCYTE ESTERASE ,URINE NEGATIVE (NEGATIVE); NITRATE,URINE NEGATIVE (NEGATIVE); OCCULT BLOOD,URINE SMALL (NEGATIVE); PROTEIN,URINE NEGATIVE (NEGATIVE); UROBILINOGEN,URINE 0.2 mg/dL (<=1.0)
[2018-03-20 17:34] LABS: APPEARANCE,URINE CLEAR (CLEAR)
[2018-03-20 17:57] LABS: BACTERIA,URINE None Seen /HPF (None Seen); WBC,URINE None Seen /HPF (0-5)
[2018-03-20] MEDS ORDERED: ACETAMINOPHEN 325 MG TABLET PO PRN ×2 (18:30→21:45)
[2018-03-20] MEDS ORDERED: 0.9% SODIUM CHLORIDE 10 ML SYRINGE IVP PRN (18:30)
[2018-03-20 21:00] VITALS: BP 125/62
[2018-03-20] MEDS ORDERED: BISACODYL 10 MG RECTAL RECTAL SUPPOSITORY PR PRN (21:45)
[2018-03-20] MEDS ORDERED: SODIUM CHLORIDE 0.45% 1,000 ML IV ONE (21:45)
[2018-03-20] MEDS ORDERED: ALBUTEROL SULFATE 2.5 MG/0.5 ML NEB SOLUTION NEB PRN (21:45)
[2018-03-20] MEDS ORDERED: DEXTROSE 50%-WATER 25 GM/50 ML SYRINGE IVP PRN (21:45)
[2018-03-20] MEDS ORDERED: OxyCODONE HCL/ACETAMINOPHEN 5-325 MG TABLET PO PRN (21:45)
[2018-03-20 23:48] VITALS: BP 149/65
[2018-03-21 04:27] VITALS: BP 100/48
[2018-03-21 05:14] VITALS: BP 126/56
[2018-03-21 06:55] LABS: BASOPHILS % (AUTO) 0.8 % (0.0-2.0); EOSINOPHILS % (AUTO) 5.8 % (1.0-6.0); HEMATOCRIT 26.6 % (41-53); HEMOGLOBIN 9.5 g/dL (13.5-17.5); LYMPHOCYTES # (AUTO) 0.9 K/uL (1.0-4.8); LYMPHOCYTES % (AUTO) 18.2 % (22.0-44.0); MEAN CORPUSCULAR HEMOGLOBIN 37.4 pg (26.0-34.0); MEAN CORPUSCULAR HGB CONC 35.9 G/dL (31.0-37.0); MEAN CORPUSCULAR VOLUME 104 fL (80-100); MONOCYTES # (AUTO) 0.4 K/uL (0.1-1.0); MONOCYTES % (AUTO) 7.6 % (2.0-9.0); NEUTROPHILS # (AUTO) 3.4 K/uL (1.8-7.7); NEUTROPHILS % (AUTO) 67.6 % (40.0-70.0); PLATELET COUNT (AUTO) 115 K/uL (150-450); RED BLOOD CELL COUNT(AUTO) 2.55 MIL/uL (4.50-5.90); RED CELL DISTRIBUTION WIDTH 14.5 % (11.5-14.5)
[2018-03-21 07:24] VITALS: BP 120/57
[2018-03-21 07:28] LABS: ALBUMIN 2.6 g/dL (3.4-5.0); BILIRUBIN,TOTAL 0.4 mg/dL (0.1-1.0); CALCIUM, TOTAL 8.2 mg/dL (8.8-10.5); CREATININE 1.59 mg/dL (0.60-1.30); POTASSIUM 4.2 mmol/L (3.5-5.1); TOTAL PROTEIN, SERUM 6.1 g/dL (6.4-8.2)
[2018-03-21] MEDS: PANTOPRAZOLE SODIUM 40 MG DR TABLET PO SCH (08:55)
[2018-03-21] MEDS: ASPIRIN 81 MG CHEWABLE TABLET PO SCH (08:55)
[2018-03-21] MEDS: DOCUSATE SODIUM 100 MG CAPSULE PO SCH ×2 (08:55→20:08)
[2018-03-21] MEDS: HEPARIN SODIUM,PORCINE 5,000 UNITS/ML VIAL SQ SCH ×2 (08:56→20:06)
[2018-03-21] MEDS: LOSARTAN POTASSIUM 25 MG TABLET PO SCH ×2 (11:15→20:08)
[2018-03-21] MEDS: CLOPIDOGREL BISULFATE 75 MG TABLET PO SCH (11:15)
[2018-03-21] MEDS: MULTIVITAMINS WITH MINERALS, THERAPEUTIC TABLET PO SCH (11:15)
[2018-03-21] MEDS: CARVEDILOL 3.125 MG TABLET PO SCH ×2 (11:15→20:08)
[2018-03-21 11:38] VITALS: BP 134/67
[2018-03-21 17:09] VITALS: BP 148/74
[2018-03-21] MEDS: INSULIN LISPRO 100 UNITS/ML SQ PRN (17:36)
[2018-03-21 19:34] VITALS: BP 124/55
[2018-03-21 20:35] LABS: GLUCOMETER DEV NAME(LOC) 5S 1M; GLUCOSE,POINT OF CARE 122 MG/DL (70-110)
[2018-03-21] MEDS ORDERED: ATORVASTATIN CALCIUM 20 MG TABLET PO SCH (21:00)
[2018-03-22 00:06] VITALS: BP 109/53
[2018-03-22 05:11] VITALS: BP 110/56
[2018-03-22 06:32] LABS: BASOPHILS % (AUTO) 0.7 % (0.0-2.0); EOSINOPHILS % (AUTO) 4.7 % (1.0-6.0); HEMOGLOBIN 10.9 g/dL (13.5-17.5); LYMPHOCYTES % (AUTO) 14.7 % (22.0-44.0); MEAN CORPUSCULAR HEMOGLOBIN 36.9 pg (26.0-34.0); MEAN CORPUSCULAR HGB CONC 35.3 G/dL (31.0-37.0); MEAN CORPUSCULAR VOLUME 105 fL (80-100); MONOCYTES # (AUTO) 0.5 K/uL (0.1-1.0); MONOCYTES % (AUTO) 7.8 % (2.0-9.0); NEUTROPHILS # (AUTO) 4.9 K/uL (1.8-7.7); NEUTROPHILS % (AUTO) 72.1 % (40.0-70.0); PLATELET COUNT (AUTO) 136 K/uL (150-450); RED BLOOD CELL COUNT(AUTO) 2.97 MIL/uL (4.50-5.90); RED CELL DISTRIBUTION WIDTH 14.2 % (11.5-14.5)
[2018-03-22 07:00] LABS: ALBUMIN 2.8 g/dL (3.4-5.0); BILIRUBIN,TOTAL 0.5 mg/dL (0.1-1.0); CALCIUM, TOTAL 8.7 mg/dL (8.8-10.5); CREATININE 1.53 mg/dL (0.60-1.30); MAGNESIUM 1.6 mg/dL (1.80-2.40); POTASSIUM 4.4 mmol/L (3.5-5.1); TOTAL PROTEIN, SERUM 6.6 g/dL (6.4-8.2)
[2018-03-22 07:35] VITALS: BP 116/58
[2018-03-22] MEDS: PANTOPRAZOLE SODIUM 40 MG DR TABLET PO SCH (08:36)
[2018-03-22] MEDS: CARVEDILOL 3.125 MG TABLET PO SCH (08:36)
[2018-03-22] MEDS: MULTIVITAMINS WITH MINERALS, THERAPEUTIC TABLET PO SCH (08:36)
[2018-03-22] MEDS: DOCUSATE SODIUM 100 MG CAPSULE PO SCH (08:36)
[2018-03-22] MEDS: HEPARIN SODIUM,PORCINE 5,000 UNITS/ML VIAL SQ SCH (08:36)
[2018-03-22] MEDS: LOSARTAN POTASSIUM 25 MG TABLET PO SCH (08:36)
[2018-03-22] MEDS: CLOPIDOGREL BISULFATE 75 MG TABLET PO SCH (08:36)
[2018-03-22] MEDS: ASPIRIN 81 MG CHEWABLE TABLET PO SCH (08:37)
[2018-03-22] MEDS ORDERED: MAGNESIUM OXIDE 400 MG TABLET PO ONE (11:00)
[2018-03-22 11:25] VITALS: BP 111/57
[2018-03-22] MEDS: INSULIN LISPRO 100 UNITS/ML SQ PRN (11:48)
[2018-03-22 13:05] LABS: GLUCOMETER DEV NAME(LOC) 5N 1P; GLUCOSE,POINT OF CARE 150 MG/DL (70-110)
[2018-03-22] MEDS ORDERED: CLOP75 PO (13:20)
[2018-03-22] MEDS ORDERED: LOSA25TA16 PO (13:21)
[2018-03-22] MEDS ORDERED: CARV3 PO (13:24)
[2018-03-23 14:19] LABS: GLUCOMETER DEV NAME(LOC) 5N 2S; GLUCOSE,POINT OF CARE 124 MG/DL (70-110)
[2018-03-23 14:19] LABS: GLUCOMETER DEV NAME(LOC) 5N 2S; GLUCOSE,POINT OF CARE 116 MG/DL (70-110)
[2018-03-23 14:19] LABS: GLUCOMETER DEV NAME(LOC) 5N 2S; GLUCOSE,POINT OF CARE 205 MG/DL (70-110)
[2018-03-23 14:20] LABS: GLUCOMETER DEV NAME(LOC) 5N 2S; GLUCOSE,POINT OF CARE 138 MG/DL (70-110)
== END 2018-03-22 14:35 | disposition home or self-care (01) | DRG 314 ==
LOC: EMS 13:20 → 5S 18:34
PROVIDERS: ADMIT Internal Medicine; ATTEND Internal Medicine
DX: I95.9 Hypotension, unspecified (principal); I50.23 Acute on chronic systolic (congestive) heart failure; I13.0 Hypertensive heart and chronic kidney disease with heart failure and stage 1 through stage 4 chronic kidney disease, or unspecified chronic kidney disease; I50.22 Chronic systolic (congestive) heart failure; N17.9 Acute kidney failure, unspecified; M19.90 Unspecified osteoarthritis, unspecified site; J44.9 Chronic obstructive pulmonary disease, unspecified; R62.7 Adult failure to thrive; E78.00 Pure hypercholesterolemia, unspecified; T50.995A Adverse effect of other drugs, medicaments and biological substances, initial encounter; D63.8 Anemia in other chronic diseases classified elsewhere; E11.22 Type 2 diabetes mellitus with diabetic chronic kidney disease; N18.9 Chronic kidney disease, unspecified; I25.10 Atherosclerotic heart disease of native coronary artery without angina pectoris; I25.5 Ischemic cardiomyopathy; E78.5 Hyperlipidemia, unspecified; I49.5 Sick sinus syndrome; I25.2 Old myocardial infarction; N40.0 Benign prostatic hyperplasia without lower urinary tract symptoms; Z87.440 Personal history of urinary (tract) infections; Z83.3 Family history of diabetes mellitus; Z82.49 Family history of ischemic heart disease and other diseases of the circulatory system; Z85.028 Personal history of other malignant neoplasm of stomach; Z87.891 Personal history of nicotine dependence; Z88.0 Allergy status to penicillin; Z95.5 Presence of coronary angioplasty implant and graft; Y92.89 Other specified places as the place of occurrence of the external cause
CPT/HCPCS: 70450; 83605; 83735; 87040; 87081; 90686; 93005; 93306; 99285; J1644

== ENCOUNTER → 2018-05-08 | Outpatient (CLI) | payer MEDICARE, OTHER ==
[~2018-05-08] MED LIST changes: -CARV12 PO; +CARV3 PO; +CLOP75 PO; -ISOS30TA6 PO; +LOSA25TA16 PO; -NITR.4 SL; -PIOG15TA6 PO; -PRAS10TA6 PO; -RANO500T3 PO; -SACU1TAB PO
[2018-05-08 12:45] LABS: BASOPHILS % (AUTO) 0.7 % (0.0-2.0); EOSINOPHILS % (AUTO) 1.5 % (1.0-6.0); HEMATOCRIT 41.5 % (41-53); HEMOGLOBIN 14.4 g/dL (13.5-17.5); LYMPHOCYTES # (AUTO) 1.3 K/uL (1.0-4.8); LYMPHOCYTES % (AUTO) 16.7 % (22.0-44.0); MEAN CORPUSCULAR HEMOGLOBIN 35.6 pg (26.0-34.0); MEAN CORPUSCULAR HGB CONC 34.7 G/dL (31.0-37.0); MEAN CORPUSCULAR VOLUME 103 fL (80-100); MONOCYTES # (AUTO) 0.4 K/uL (0.1-1.0); MONOCYTES % (AUTO) 5.3 % (2.0-9.0); NEUTROPHILS # (AUTO) 5.7 K/uL (1.8-7.7); NEUTROPHILS % (AUTO) 75.8 % (40.0-70.0); PLATELET COUNT (AUTO) 155 K/uL (150-450); RED BLOOD CELL COUNT(AUTO) 4.05 MIL/uL (4.50-5.90); RED CELL DISTRIBUTION WIDTH 13.2 % (11.5-14.5)
[2018-05-08 13:11] LABS: HEMOGLOBIN A1C 6.7 % (4.5-6.2)
[2018-05-08 13:21] LABS: ALBUMIN 4.4 g/dL (3.4-5.0); BILIRUBIN,TOTAL 0.8 mg/dL (0.1-1.0); CALCIUM, TOTAL 9.6 mg/dL (8.8-10.5); CHOL/HDL RATIO 2.5 (4.2-7.3); CREATININE 1.54 mg/dL (0.60-1.30); FREE T4 (FREE THYROXINE) 1.05 ng/dL (0.76-1.46); POTASSIUM 4.8 mmol/L (3.5-5.1); THYROID STIMULATING HORMONE 2.69 uIU/mL (0.36-3.74)
== END | disposition home or self-care (01) ==
LOC: LABPV 10:10
PROVIDERS: ATTEND Internal Medicine Cardiovascular Disease
DX: E55.9 Vitamin D deficiency, unspecified (principal); I11.0 Hypertensive heart disease with heart failure; I50.9 Heart failure, unspecified; E11.8 Type 2 diabetes mellitus with unspecified complications
CPT/HCPCS: 82306; 83036; 83735; 84439; 84443

== ENCOUNTER 2018-08-09 15:13 | Inpatient (IN) | payer MEDICARE, OTHER ==
[~2018-08-09] VITALS: Ht 160 cm; Wt 53.3 kg
[~2018-08-09 15:13] MED LIST changes: -CLOP75 PO; +CLOP75TA3 PO; -LOSA25TA16 PO; +LOSA25TA41 PO
[2018-08-09 15:59] LABS: GLUCOSE,POINT OF CARE 170 MG/DL (70-110)
[2018-08-09 16:05] LABS: BASOPHILS % (AUTO) 0.7 % (0.0-2.0); EOSINOPHILS % (AUTO) 1.2 % (1.0-6.0); HEMATOCRIT 40.6 % (41-53); LYMPHOCYTES # (AUTO) 1.1 K/uL (1.0-4.8); LYMPHOCYTES % (AUTO) 13.5 % (22.0-44.0); MEAN CORPUSCULAR HGB CONC 34.3 G/dL (31.0-37.0); MEAN CORPUSCULAR VOLUME 99 fL (80-100); MONOCYTES # (AUTO) 0.4 K/uL (0.1-1.0); MONOCYTES % (AUTO) 4.6 % (2.0-9.0); NEUTROPHILS # (AUTO) 6.3 K/uL (1.8-7.7); PLATELET COUNT (AUTO) 109 K/uL (150-450); RED CELL DISTRIBUTION WIDTH 13.1 % (11.5-14.5)
[2018-08-09 16:15] LABS: CALCIUM, TOTAL 10.9 mg/dL (8.8-10.5); CREATININE 1.96 mg/dL (0.60-1.30); POTASSIUM 5.2 mmol/L (3.5-5.1)
[2018-08-09 16:17] LABS: PROTHROMBIN TIME 10.5 SEC (9.4-11.6)
[2018-08-09 16:23] LABS: ALBUMIN 3.8 g/dL (3.4-5.0); BILIRUBIN,TOTAL 0.7 mg/dL (0.1-1.0); TOTAL PROTEIN, SERUM 8.4 g/dL (6.4-8.2)
[2018-08-09 16:49] LABS: APPEARANCE,URINE CLEAR (CLEAR); BILIRUBIN,URINE NEGATIVE (NEGATIVE); GLUCOSE, URINE (UA) >=1000 mg/dL (NEGATIVE); KETONES,URINE NEGATIVE (NEGATIVE); LEUKOCYTE ESTERASE ,URINE SMALL (NEGATIVE); NITRATE,URINE NEGATIVE (NEGATIVE); OCCULT BLOOD,URINE NEGATIVE (NEGATIVE); PROTEIN,URINE NEGATIVE (NEGATIVE); UROBILINOGEN,URINE 0.2 mg/dL (<=1.0)
[2018-08-09 16:59] LABS: BACTERIA,URINE Rare /HPF (None Seen); RBC,URINE 0-2 /HPF (0-2); SQUAMOUS EPITHELIAL CELL,UR Few /LPF (None Seen)
[2018-08-09 17:00] LABS: PLATELET MORPHOLOGY COMMENT DECREASED
[2018-08-09] MEDS ORDERED: SODIUM CHLORIDE 0.9% 1,700 ML IV ONE (17:17)
[2018-08-09] MEDS ORDERED: CIPROFLOXACIN 400 MG/D5% WATER 200 ML IV ONE (17:30)
[2018-08-09 18:28] LABS: LACTIC ACID 2.9 mmol/L (0.4-2.0)
[2018-08-09] MEDS ORDERED: ALBUTEROL SULFATE 2.5 MG/0.5 ML NEB SOLUTION NEB PRN (19:30)
[2018-08-09] MEDS ORDERED: BISACODYL 10 MG RECTAL RECTAL SUPPOSITORY PR PRN (19:30)
[2018-08-09] MEDS ORDERED: *CLINICAL-LEVOFLOXACIN IVPB DOSING CLINICAL ONE (19:30)
[2018-08-09] MEDS ORDERED: INSULIN LISPRO 100 UNITS/ML SQ PRN (19:30)
[2018-08-09] MEDS ORDERED: OxyCODONE HCL/ACETAMINOPHEN 5-325 MG TABLET PO PRN (19:30)
[2018-08-09] MEDS ORDERED: ACETAMINOPHEN 325 MG TABLET PO PRN (19:30)
[2018-08-09] MEDS ORDERED: DEXTROSE 50%-WATER 25 GM/50 ML SYRINGE IVP PRN (19:30)
[2018-08-09] MEDS: HEPARIN SODIUM,PORCINE 5,000 UNITS/ML VIAL SQ SCH (21:00)
[2018-08-09 21:38] VITALS: BP 160/93
[2018-08-09] MEDS: ATORVASTATIN CALCIUM 20 MG TABLET PO SCH (21:58)
[2018-08-09] MEDS: DOCUSATE SODIUM 100 MG CAPSULE PO SCH (21:58)
[2018-08-10 00:12] VITALS: BP 140/71
[2018-08-10 01:33] LABS: GLUCOMETER DEV NAME(LOC) 5N.2; GLUCOSE,POINT OF CARE 125 MG/DL (70-110)
[2018-08-10 04:45] VITALS: BP 111/62
[2018-08-10 05:54] LABS: GLUCOMETER DEV NAME(LOC) 5S.2; GLUCOSE,POINT OF CARE 97 MG/DL (70-110)
[2018-08-10 06:25] LABS: CREATININE 1.35 mg/dL (0.60-1.30); POTASSIUM 4.5 mmol/L (3.5-5.1)
[2018-08-10 07:41] VITALS: BP 102/56
[2018-08-10] MEDS: CLOPIDOGREL BISULFATE 75 MG TABLET PO SCH (08:29)
[2018-08-10] MEDS: DOCUSATE SODIUM 100 MG CAPSULE PO SCH ×2 (08:29→20:09)
[2018-08-10] MEDS: FAMOTIDINE 20 MG TABLET PO SCH (08:29)
[2018-08-10] MEDS: HEPARIN SODIUM,PORCINE 5,000 UNITS/ML VIAL SQ SCH ×2 (08:29→20:10)
[2018-08-10] MEDS: ASPIRIN 81 MG CHEWABLE TABLET PO SCH (08:30)
[2018-08-10] MEDS ORDERED: LEVOFLOXACIN 750 MG/D5% WATER 150 ML IV SCH (09:00)
[2018-08-10] MEDS ORDERED: SODIUM CHLORIDE 0.9% 250 ML IV ONE (09:50)
[2018-08-10 11:10] VITALS: BP 102/55
[2018-08-10 12:53] LABS: GLUCOMETER DEV NAME(LOC) 5S.2; GLUCOSE,POINT OF CARE 107 MG/DL (70-110)
[2018-08-10 15:52] VITALS: BP 105/66
[2018-08-10] MEDS: ATORVASTATIN CALCIUM 20 MG TABLET PO SCH (20:09)
[2018-08-10 20:21] VITALS: BP 141/75
[2018-08-10] MEDS ORDERED: ZOLPIDEM TARTRATE 5 MG TABLET PO PRN (21:00)
[2018-08-10 21:33] LABS: GLUCOMETER DEV NAME(LOC) 5S.2; GLUCOSE,POINT OF CARE 174 MG/DL (70-110)
[2018-08-10 21:34] LABS: GLUCOMETER DEV NAME(LOC) 5N.2; GLUCOSE,POINT OF CARE 108 MG/DL (70-110)
[2018-08-11 00:08] VITALS: BP 136/68
[2018-08-11 04:55] VITALS: BP 117/77
[2018-08-11 06:19] LABS: GLUCOMETER DEV NAME(LOC) 5N.2; GLUCOSE,POINT OF CARE 97 MG/DL (70-110)
[2018-08-11] MEDS: ASPIRIN 81 MG CHEWABLE TABLET PO SCH (07:46)
[2018-08-11] MEDS: FAMOTIDINE 20 MG TABLET PO SCH (07:46)
[2018-08-11] MEDS: CLOPIDOGREL BISULFATE 75 MG TABLET PO SCH (07:46)
[2018-08-11] MEDS: HEPARIN SODIUM,PORCINE 5,000 UNITS/ML VIAL SQ SCH (07:46)
[2018-08-11] MEDS: DOCUSATE SODIUM 100 MG CAPSULE PO SCH (07:46)
[2018-08-11 08:23] VITALS: BP 140/63
[2018-08-11 11:33] VITALS: BP 135/82
[2018-08-11 13:10] LABS: GLUCOMETER DEV NAME(LOC) 5N.1; GLUCOSE,POINT OF CARE 120 MG/DL (70-110)
[2018-08-11 15:50] VITALS: BP 138/70
== END 2018-08-11 18:58 | disposition home or self-care (01) | DRG 683 ==
LOC: EMS 15:14 → 5N 20:45 → 5S 08-11 05:17
PROVIDERS: ADMIT Internal Medicine; ATTEND Internal Medicine
DX: N17.9 Acute kidney failure, unspecified (principal); N39.0 Urinary tract infection, site not specified; I50.22 Chronic systolic (congestive) heart failure; I13.0 Hypertensive heart and chronic kidney disease with heart failure and stage 1 through stage 4 chronic kidney disease, or unspecified chronic kidney disease; I25.10 Atherosclerotic heart disease of native coronary artery without angina pectoris; E11.22 Type 2 diabetes mellitus with diabetic chronic kidney disease; N18.3 Chronic kidney disease, stage 3 (moderate); E78.00 Pure hypercholesterolemia, unspecified; E86.0 Dehydration; F01.50 Vascular dementia, unspecified severity, without behavioral disturbance, psychotic disturbance, mood disturbance, and anxiety; J44.9 Chronic obstructive pulmonary disease, unspecified; N18.9 Chronic kidney disease, unspecified; N40.0 Benign prostatic hyperplasia without lower urinary tract symptoms; R62.7 Adult failure to thrive; Z95.0 Presence of cardiac pacemaker; Z95.5 Presence of coronary angioplasty implant and graft; Z88.0 Allergy status to penicillin; Z79.82 Long term (current) use of aspirin; Z79.899 Other long term (current) drug therapy; Z83.3 Family history of diabetes mellitus; Z82.49 Family history of ischemic heart disease and other diseases of the circulatory system
CPT/HCPCS: 83605; 87040; 87086; 93005; 96365; 97116; 97161; G0378; J0744; J1644; J1956; J7030; J7050

== ENCOUNTER 2018-08-22 19:42 | Emergency (ER) | payer MEDICARE, OTHER ==
[~2018-08-22] VITALS: Ht 160 cm; Wt 58.4 kg
[~2018-08-22 19:42] MED LIST changes: -LOSA25TA41 PO; -OMEP10 PO
[2018-08-22 21:45] LABS: GLUCOSE,POINT OF CARE 128 MG/DL (70-110)
[2018-08-22 22:16] LABS: BASOPHILS % (AUTO) 0.9 % (0.0-2.0); EOSINOPHILS % (AUTO) 2.8 % (1.0-6.0); HEMATOCRIT 34.7 % (41-53); LYMPHOCYTES # (AUTO) 1.3 K/uL (1.0-4.8); LYMPHOCYTES % (AUTO) 20.8 % (22.0-44.0); MEAN CORPUSCULAR HGB CONC 34.6 G/dL (31.0-37.0); MEAN CORPUSCULAR VOLUME 98 fL (80-100); MONOCYTES # (AUTO) 0.4 K/uL (0.1-1.0); MONOCYTES % (AUTO) 7.1 % (2.0-9.0); NEUTROPHILS # (AUTO) 4.2 K/uL (1.8-7.7); NEUTROPHILS % (AUTO) 68.4 % (40.0-70.0); PLATELET COUNT (AUTO) 134 K/uL (150-450); RED BLOOD CELL COUNT(AUTO) 3.53 MIL/uL (4.50-5.90); RED CELL DISTRIBUTION WIDTH 13.5 % (11.5-14.5)
[2018-08-22 22:24] LABS: CALCIUM, TOTAL 9.6 mg/dL (8.8-10.5); CREATININE 2.02 mg/dL (0.60-1.30); POTASSIUM 4.7 mmol/L (3.5-5.1)
[2018-08-22 22:48] LABS: ALBUMIN 3.9 g/dL (3.4-5.0); BILIRUBIN,TOTAL 0.4 mg/dL (0.1-1.0); TOTAL PROTEIN, SERUM 7.6 g/dL (6.4-8.2)
[2018-08-23 01:30] LABS: APPEARANCE,URINE CLOUDY (CLEAR); BILIRUBIN,URINE NEGATIVE (NEGATIVE); GLUCOSE, URINE (UA) >=1000 mg/dL (NEGATIVE); KETONES,URINE NEGATIVE (NEGATIVE); LEUKOCYTE ESTERASE ,URINE SMALL (NEGATIVE); NITRATE,URINE NEGATIVE (NEGATIVE); OCCULT BLOOD,URINE NEGATIVE (NEGATIVE); PROTEIN,URINE NEGATIVE (NEGATIVE); UROBILINOGEN,URINE 0.2 mg/dL (<=1.0)
[2018-08-23 01:40] LABS: BACTERIA,URINE None Seen /HPF (None Seen); RBC,URINE None Seen /HPF (0-2); SQUAMOUS EPITHELIAL CELL,UR Few /LPF (None Seen)
[2018-08-23 02:49] VITALS: BP 133/67
== END 2018-08-23 03:21 | disposition home or self-care (01) ==
LOC: EMS 19:43
DX: N18.9 Chronic kidney disease, unspecified (principal); F43.20 Adjustment disorder, unspecified; R07.89 Other chest pain; I11.0 Hypertensive heart disease with heart failure; I50.9 Heart failure, unspecified; E78.00 Pure hypercholesterolemia, unspecified; I25.2 Old myocardial infarction; I25.10 Atherosclerotic heart disease of native coronary artery without angina pectoris; Z88.0 Allergy status to penicillin; Z79.899 Other long term (current) drug therapy
CPT/HCPCS: 87086; 93005

== ENCOUNTER 2018-09-21 04:40 | Emergency (ER) | payer MEDICARE, OTHER ==
[~2018-09-21] VITALS: Ht 160 cm; Wt 59.1 kg
[~2018-09-21 04:40] MED LIST changes: +LOSA25TA41 PO; +NITR2.5 PO; +OMEP10 PO; +ZOLP5 PO
[2018-09-21 04:54] LABS: GLUCOSE,POINT OF CARE 103 MG/DL (70-110)
[2018-09-21] MEDS ORDERED: TAMSULOSIN HCL 0.4 MG CAPSULE PO ONE (05:45)
[2018-09-21 05:59] LABS: APPEARANCE,URINE CLEAR (CLEAR); BILIRUBIN,URINE NEGATIVE (NEGATIVE); GLUCOSE, URINE (UA) >=1000 mg/dL (NEGATIVE); KETONES,URINE NEGATIVE (NEGATIVE); LEUKOCYTE ESTERASE ,URINE NEGATIVE (NEGATIVE); NITRATE,URINE NEGATIVE (NEGATIVE); OCCULT BLOOD,URINE NEGATIVE (NEGATIVE); PH,URINE 5.5 (5.0-8.0); PROTEIN,URINE NEGATIVE (NEGATIVE); UROBILINOGEN,URINE 0.2 mg/dL (<=1.0)
[2018-09-21 06:38] LABS: BACTERIA,URINE None Seen /HPF (None Seen); RBC,URINE None Seen /HPF (0-2); SQUAMOUS EPITHELIAL CELL,UR Rare /LPF (None Seen); WBC,URINE 0-2 /HPF (0-5)
[2018-09-21 07:55] VITALS: BP 116/69
== END 2018-09-21 08:30 | disposition home or self-care (01) ==
LOC: EMS 04:46
DX: R33.9 Retention of urine, unspecified (principal); I11.0 Hypertensive heart disease with heart failure; I50.9 Heart failure, unspecified; E11.9 Type 2 diabetes mellitus without complications; E78.00 Pure hypercholesterolemia, unspecified; J44.9 Chronic obstructive pulmonary disease, unspecified; I25.2 Old myocardial infarction; I25.10 Atherosclerotic heart disease of native coronary artery without angina pectoris; Z88.0 Allergy status to penicillin; Z79.899 Other long term (current) drug therapy
CPT/HCPCS: 51702

== ENCOUNTER 2018-09-21 16:46 | Emergency (ER) | payer MEDICARE, OTHER ==
[~2018-09-21] VITALS: Ht 157.5 cm; Wt 61.4 kg
[2018-09-21 16:59] LABS: GLUCOSE,POINT OF CARE 182 MG/DL (70-110)
[2018-09-21 21:58] VITALS: BP 106/64
== END 2018-09-21 18:01 | disposition home or self-care (01) ==
LOC: EMS 16:50
DX: T83.091A Other mechanical complication of indwelling urethral catheter, initial encounter (principal); R33.9 Retention of urine, unspecified; I11.0 Hypertensive heart disease with heart failure; I50.9 Heart failure, unspecified; I25.10 Atherosclerotic heart disease of native coronary artery without angina pectoris; E11.9 Type 2 diabetes mellitus without complications; E78.00 Pure hypercholesterolemia, unspecified; J44.9 Chronic obstructive pulmonary disease, unspecified; Z88.0 Allergy status to penicillin; Z79.82 Long term (current) use of aspirin; Z79.899 Other long term (current) drug therapy

== ENCOUNTER 2018-09-24 14:03 | Emergency (ER) | payer MEDICARE, OTHER ==
[~2018-09-24] VITALS: Ht 162.6 cm; Wt 59.1 kg
[2018-09-24 15:41] LABS: BASOPHILS % (AUTO) 0.6 % (0.0-2.0); EOSINOPHILS % (AUTO) 1.9 % (1.0-6.0); HEMATOCRIT 34.9 % (41-53); HEMOGLOBIN 11.7 g/dL (13.5-17.5); LYMPHOCYTES # (AUTO) 1.1 K/uL (1.0-4.8); LYMPHOCYTES % (AUTO) 18.3 % (22.0-44.0); MEAN CORPUSCULAR HEMOGLOBIN 34.6 pg (26.0-34.0); MEAN CORPUSCULAR HGB CONC 33.6 G/dL (31.0-37.0); MEAN CORPUSCULAR VOLUME 103 fL (80-100); MONOCYTES # (AUTO) 0.4 K/uL (0.1-1.0); MONOCYTES % (AUTO) 6.4 % (2.0-9.0); NEUTROPHILS # (AUTO) 4.3 K/uL (1.8-7.7); NEUTROPHILS % (AUTO) 72.8 % (40.0-70.0); PLATELET COUNT (AUTO) 135 K/uL (150-450); RED BLOOD CELL COUNT(AUTO) 3.39 MIL/uL (4.50-5.90); RED CELL DISTRIBUTION WIDTH 14.3 % (11.5-14.5)
[2018-09-24 15:45] LABS: CALCIUM, TOTAL 9.7 mg/dL (8.8-10.5); CREATININE 2.38 mg/dL (0.60-1.30); POTASSIUM 4.8 mmol/L (3.5-5.1)
[2018-09-24 15:48] LABS: PROTHROMBIN TIME 10.2 SEC (9.4-11.6)
[2018-09-24 15:51] LABS: ALBUMIN 3.6 g/dL (3.4-5.0); BILIRUBIN,TOTAL 0.4 mg/dL (0.1-1.0); TOTAL PROTEIN, SERUM 7.8 g/dL (6.4-8.2)
[2018-09-24 16:00] LABS: APPEARANCE,URINE CLOUDY (CLEAR); BILIRUBIN,URINE NEGATIVE (NEGATIVE); GLUCOSE, URINE (UA) >=1000 mg/dL (NEGATIVE); KETONES,URINE TRACE mg/dL (NEGATIVE); LEUKOCYTE ESTERASE ,URINE SMALL (NEGATIVE); NITRATE,URINE NEGATIVE (NEGATIVE); OCCULT BLOOD,URINE LARGE (NEGATIVE); PROTEIN,URINE SEE CONFIRM (NEGATIVE); UROBILINOGEN,URINE 0.2 mg/dL (<=1.0)
[2018-09-24 16:33] LABS: BACTERIA,URINE None Seen /HPF (None Seen); RBC,URINE Full Field /HPF (0-2); SULFOSALICYLIC ACID,URINE 3+ (Negative)
[2018-09-24 17:50] VITALS: BP 131/71
== END 2018-09-24 17:58 | disposition home or self-care (01) ==
LOC: EMS 14:05
DX: N28.9 Disorder of kidney and ureter, unspecified (principal); I25.10 Atherosclerotic heart disease of native coronary artery without angina pectoris; I11.0 Hypertensive heart disease with heart failure; I50.9 Heart failure, unspecified; E11.9 Type 2 diabetes mellitus without complications; J44.9 Chronic obstructive pulmonary disease, unspecified; E78.00 Pure hypercholesterolemia, unspecified; I25.2 Old myocardial infarction; M19.90 Unspecified osteoarthritis, unspecified site; Z95.0 Presence of cardiac pacemaker; Z88.0 Allergy status to penicillin
CPT/HCPCS: 87086

== ENCOUNTER 2018-11-16 18:54 | Emergency (ER) | payer MEDICARE, OTHER ==
[~2018-11-16] VITALS: Ht 160 cm; Wt 56.8 kg
[2018-11-16 19:34] LABS: GLUCOSE,POINT OF CARE 103 MG/DL (70-110)
[2018-11-16] MEDS ORDERED: GABA-531 PO (19:45)
[2018-11-16] MEDS ORDERED: RANO500T3 PO (19:45)
[2018-11-16] MEDS ORDERED: DOCU240C80 PO (19:45)
[2018-11-16] MEDS ORDERED: TAMS-1 PO (19:45)
[2018-11-16] MEDS ORDERED: EMPA10TA PO (19:45)
[2018-11-16] MEDS ORDERED: AMLO-511 PO (19:45)
[2018-11-16] MEDS ORDERED: 0.9% SODIUM CHLORIDE 10 ML SYRINGE IVP PRN (21:15)
[2018-11-16 21:31] LABS: BASOPHILS % (AUTO) 0.9 % (0.0-2.0); EOSINOPHILS % (AUTO) 2.9 % (1.0-6.0); HEMOGLOBIN 11.6 g/dL (13.5-17.5); LYMPHOCYTES # (AUTO) 1.1 K/uL (1.0-4.8); LYMPHOCYTES % (AUTO) 16.3 % (22.0-44.0); MEAN CORPUSCULAR HEMOGLOBIN 34.3 pg (26.0-34.0); MEAN CORPUSCULAR HGB CONC 33.2 G/dL (31.0-37.0); MEAN CORPUSCULAR VOLUME 103 fL (80-100); MONOCYTES # (AUTO) 0.5 K/uL (0.1-1.0); MONOCYTES % (AUTO) 7.4 % (2.0-9.0); NEUTROPHILS # (AUTO) 4.9 K/uL (1.8-7.7); NEUTROPHILS % (AUTO) 72.5 % (40.0-70.0); PLATELET COUNT (AUTO) 154 K/uL (150-450); RED BLOOD CELL COUNT(AUTO) 3.39 MIL/uL (4.50-5.90); RED CELL DISTRIBUTION WIDTH 14.4 % (11.5-14.5)
[2018-11-16 21:42] LABS: PROTHROMBIN TIME 10.6 SEC (9.4-11.6)
[2018-11-16 21:53] LABS: ANION GAP 9 mmol/L (8-16); CARBON DIOXIDE 26 mmol/L (22-29); CHLORIDE 105 mmol/L (98-107); CREATININE 2.02 mg/dL (0.60-1.30); GLOMERULAR FILTR. RATE CALC 32 mL/min (>60); GLUCOSE,RANDOM 110 mg/dL (70-110); POTASSIUM 4.1 mmol/L (3.5-5.1); SODIUM SERUM 140 mmol/L (136-145); UREA NITROGEN, BLOOD 25 mg/dL (7-18)
[2018-11-16 22:00] LABS: ALANINE AMINOTRANSFERASE 22 U/L (12-78); ALBUMIN 3.3 g/dL (3.4-5.0); ALKALINE PHOSPHATASE 81 U/L (46-116); ASPARTATE AMINOTRANSFERASE 21 U/L (15-37); BILIRUBIN,TOTAL 0.5 mg/dL (0.1-1.0); TOTAL PROTEIN, SERUM 7.9 g/dL (6.4-8.2)
[2018-11-16 22:01] LABS: B-TYPE NATRIURETIC PEPTIDE 222 pg/mL (0-100)
[2018-11-16 22:36] LABS: LACTIC ACID 0.9 mmol/L (0.4-2.0)
[2018-11-17 01:00] LABS: APPEARANCE,URINE CLOUDY (CLEAR); BILIRUBIN,URINE NEGATIVE (NEGATIVE); GLUCOSE, URINE (UA) >=1000 mg/dL (NEGATIVE); KETONES,URINE TRACE mg/dL (NEGATIVE); LEUKOCYTE ESTERASE ,URINE MODERATE (NEGATIVE); NITRATE,URINE NEGATIVE (NEGATIVE); OCCULT BLOOD,URINE LARGE (NEGATIVE); PH,URINE 5.5 (5.0-8.0); PROTEIN,URINE POS 1+ (NEGATIVE)
[2018-11-17 01:10] LABS: RBC,URINE Full Field /HPF (0-2)
[2018-11-17 01:14] LABS: BACTERIA,URINE None Seen /HPF (None Seen); SQUAMOUS EPITHELIAL CELL,UR Rare /LPF (None Seen)
[2018-11-17 02:41] VITALS: BP 166/82
== END 2018-11-17 03:57 | disposition home or self-care (01) ==
LOC: EMS 18:57
DX: R33.9 Retention of urine, unspecified (principal); N40.0 Benign prostatic hyperplasia without lower urinary tract symptoms; I11.0 Hypertensive heart disease with heart failure; I50.9 Heart failure, unspecified; I25.10 Atherosclerotic heart disease of native coronary artery without angina pectoris; E11.9 Type 2 diabetes mellitus without complications; E78.00 Pure hypercholesterolemia, unspecified; I25.2 Old myocardial infarction; Z88.0 Allergy status to penicillin; Z79.899 Other long term (current) drug therapy
CPT/HCPCS: 83605; 84145; 87040; 87086; 93005

== ENCOUNTER 2019-01-11 14:50 | Emergency (ER) | payer MEDICARE, OTHER ==
[~2019-01-11] VITALS: Ht 157.5 cm; Wt 61.4 kg
[~2019-01-11 14:50] MED LIST changes: +AMLO5TAB9 PO; +DOCU240C80 PO; +EMPA10TA PO; +GABA-531 PO; -OMEP10 PO; +RANO500T3 PO; -SITA50 PO; +TAMS-1 PO; -ZOLP5 PO
[2019-01-11 15:00] LABS: GLUCOSE,POINT OF CARE 210 MG/DL (70-110)
[2019-01-11] MEDS ORDERED: DULA1.5P PO (15:03)
[2019-01-11 16:07] LABS: BASOPHILS % (AUTO) 0.6 % (0.0-2.0); EOSINOPHILS % (AUTO) 1.1 % (1.0-6.0); HEMOGLOBIN 11.8 g/dL (13.5-17.5); LYMPHOCYTES # (AUTO) 1.1 K/uL (1.0-4.8); LYMPHOCYTES % (AUTO) 19.8 % (22.0-44.0); MEAN CORPUSCULAR HEMOGLOBIN 33.8 pg (26.0-34.0); MEAN CORPUSCULAR HGB CONC 32.7 G/dL (31.0-37.0); MEAN CORPUSCULAR VOLUME 103 fL (80-100); MONOCYTES # (AUTO) 0.8 K/uL (0.1-1.0); MONOCYTES % (AUTO) 14.8 % (2.0-9.0); NEUTROPHILS # (AUTO) 3.6 K/uL (1.8-7.7); NEUTROPHILS % (AUTO) 63.7 % (40.0-70.0); PLATELET COUNT (AUTO) 119 K/uL (150-450); RED BLOOD CELL COUNT(AUTO) 3.49 MIL/uL (4.50-5.90)
[2019-01-11] MEDS ORDERED: ACETAMINOPHEN 500 MG TABLET PO ONE (16:15)
[2019-01-11] MEDS ORDERED: SODIUM CHLORIDE 0.9% 1,000 ML IV ONE (16:15)
[2019-01-11 16:19] LABS: CALCIUM, TOTAL 9.1 mg/dL (8.8-10.5); CREATININE 2.14 mg/dL (0.60-1.30); POTASSIUM 4.3 mmol/L (3.5-5.1)
[2019-01-11 16:20] LABS: APPEARANCE,URINE CLOUDY (CLEAR); BILIRUBIN,URINE NEGATIVE (NEGATIVE); GLUCOSE, URINE (UA) >=1000 mg/dL (NEGATIVE); KETONES,URINE NEGATIVE (NEGATIVE); LEUKOCYTE ESTERASE ,URINE MODERATE (NEGATIVE); NITRATE,URINE POSITIVE (NEGATIVE); OCCULT BLOOD,URINE SMALL (NEGATIVE); PH,URINE 5.5 (5.0-8.0); PROTEIN,URINE POS 1+ (NEGATIVE)
[2019-01-11 16:29] LABS: WBC,URINE >100 /HPF (0-5)
[2019-01-11 16:30] LABS: BACTERIA,URINE Moderate /HPF (None Seen); RBC,URINE 0-2 /HPF (0-2); SQUAMOUS EPITHELIAL CELL,UR Few /LPF (None Seen)
[2019-01-11 16:48] LABS: ALBUMIN 3.1 g/dL (3.4-5.0); BILIRUBIN,TOTAL 0.8 mg/dL (0.1-1.0); TOTAL PROTEIN, SERUM 7.5 g/dL (6.4-8.2)
[2019-01-11 17:07] LABS: INFLUENZA TYPE A NEGATIVE FOR TYPE A (NEGATIVE); INFLUENZA TYPE B NEGATIVE FOR TYPE B (NEGATIVE)
[2019-01-11] MEDS ORDERED: CefTRIAXone 1 GM/DEXTROSE 50 ML IV ONE (17:30)
[2019-01-11 20:33] VITALS: BP 134/73
== END 2019-01-11 20:54 | disposition home or self-care (01) ==
LOC: EMS 14:52
DX: N39.0 Urinary tract infection, site not specified (principal); R53.1 Weakness; E11.22 Type 2 diabetes mellitus with diabetic chronic kidney disease; I13.0 Hypertensive heart and chronic kidney disease with heart failure and stage 1 through stage 4 chronic kidney disease, or unspecified chronic kidney disease; N18.9 Chronic kidney disease, unspecified; I50.9 Heart failure, unspecified; E78.00 Pure hypercholesterolemia, unspecified; I25.10 Atherosclerotic heart disease of native coronary artery without angina pectoris; I25.2 Old myocardial infarction; J44.9 Chronic obstructive pulmonary disease, unspecified; M19.90 Unspecified osteoarthritis, unspecified site; Z79.899 Other long term (current) drug therapy; Z88.0 Allergy status to penicillin
CPT/HCPCS: 36415; 71046; 80053; 81001; 82550; 82962; 83605; 83880; 84484; 85025; 87040; 87077; 87086; 87804; 93005; 96365; 99285; J0696; J7030